=== PATIENT | male | born 1955 | race Caucasian/White ===

== ENCOUNTER 2016-12-08 06:12 | Inpatient (IN) | payer OTHER ==
[~2016-12-08] VITALS: Ht 188 cm; Wt 140.4 kg
[~2016-12-08 06:12] MED LIST: AMOXICILLIN500 MG PO; ANAPROX DS550 MG PO; ASPIRIN325 MG PO; ATIVAN1 MG PO; CIPROFLOXACIN500 MG PO; CLARITIN10 MG PO; CORBAN MAGNESI400 MG PO; CYMBALTA60 MG PO; DAILY VITE W/IR1 TA1 PO; DURAGESIC25 MCG/HR TD; EFFEXOR XR37.5 M1 PO; ESIDRIX25 MG PO; FANAPT12 MG PO; FANAPT6 MG PO; FISH OIL 10001000 MG PO; FLOMAX0.4 MG PO; GLIPIZIDE10 MG PO; GLUCOPHAGE500 MG PO; HYDROCODONE BIT1 T11 PO; K-LOR20 MEQ PO; KEFLEX500 MG PO; LASIX20 MG PO; LISINOPRIL2.5 MG PO; LOPRESSOR25 MG PO; METFORMIN500 MG PO; METOPROLOL SR50 MG PO; MOTRIN800 MG PO; MULTIPLE VITAMI1 TA9 PO; NAPROSYN500 MG PO; NEURONTIN100 MG PO; NORCO 325 MG-51 TAB PO; NOVOLIN R100 U/ML; Nizoral 2%15 GM PO; Nystatin Cream15 GM PO; OYSTER SHELL C500 M3 PO; PEN-VEE K500 MG; PENICILLIN VK500 MG PO; PERCOCET 325 MG1 TA2 PO; PRILOSEC40 MG PO; PRINIVIL5 MG PO; SEROQUEL300 MG PO; TRAMADOL HCL50 MG PO; TRILIPIX45 M1 PO; TYLENOL EXTRA500 MG PO; VICODIN 5/500 505 MG PO; VITAMIN D32000 I1 PO; VITAMIN D50000 IU PO; VITAMIN E400 I1 PO; VOLTAREN50 M1; VOLTAREN50 M1 PO; XANAX2 MG PO; ZITHROMAX Z PA250 MG PO; ZOFRAN4 MG PO; [UNRECOGNIZED DRUG - CODE]; [UNRECOGNIZED DRUG - OTHER]
[2016-12-08 06:17] VITALS: BP 135/64
--- NOTE | 2016-12-08 06:56 | NUR ---
PT ASSISTED TO X RAY VIA WHEELCHAIR VIA ARCHITECT MANAGER.
[2016-12-08 07:02] LABS: BASO % 0.3 % (0.0-1.0); EOS # 0.1 10*3/uL (0.0-0.4); EOS % 1.7 % (1.0-4.0); HEMATOCRIT 40.6 % (42.0-52.0); HEMOGLOBIN 14.6 g/dl (14.0-18.0); LYMPH # 0.8 10*3/uL (1.3-4.4); LYMPH % 9.8 % (27.0-41.0); MEAN PLATELET VOLUME 10.6 fl (9.6-12.3); MONO # 0.5 10*3/uL (0.1-1.0); MONO % 6.3 % (3.0-9.0); NEUT # 6.2 10*3/uL (2.3-7.9); NEUT % 81.5 % (47.0-73.0); PLATELET COUNT AUTOMATED 181 10*3/uL (130-400); RED BLOOD COUNT 4.56 10*6/uL (4.50-5.90); RED CELL DISTRI WIDTH 12.4 % (0-14.5); WHITE BLOOD COUNT 7.7 10*3/uL (4.8-10.8)
[2016-12-08 07:17] LABS: ALBUMIN 3.8 gm/dl (3.1-4.5); ALKALINE PHOSPHATASE 79 U/L (45-117); BUN 14 mg/dl (7-24); CHLORIDE 105 mmol/L (98-107); CREATININE 1.27 mg/dL (0.70-1.30); LIPASE 81 U/L (73-393); POTASSIUM 3.4 mmol/L (3.5-5.1); SGOT/AST 19 IU/L (3-35); SGPT/ALT 38 U/L (12-78); SODIUM 138 mmol/L (136-145); TOTAL PROTEIN 7.4 gm/dL (6.4-8.2)
[2016-12-08 07:18] LABS: TROPONIN I < 0.015 ng/ml (<0.045)
[2016-12-08 07:41] LABS: BILIRUBIN NEGATIVE (NEGATIVE); BLOOD NEGATIVE (NEGATIVE); CLARITY CLEAR (CLEAR); COLOR YELLOW (YELLOW); GLUCOSE NEGATIVE (NEGATIVE); KETONE NEGATIVE (NEGATIVE); LEUKO ESTERASE TRACE (NEGATIVE); NITRITE NEGATIVE (NEGATIVE); SPECIFIC GRAVITY 1.015 (1.005-1.030); UROBILINOGEN 0.2 E.U./dl (0.2-1.0)
[2016-12-08 07:50] LABS: EPITHELIAL CELLS 0-2; RBC 0-2 rbc/hpf (0-2)
[2016-12-08 07:51] LABS: BACTERIA TRACE
[2016-12-08 07:58] VITALS: BP 115/65
--- NOTE | 2016-12-08 08:00 | NUR ---
NO C/O AT THIS TIME.PT BEING ADMITTED,HE VOICES UNDERSTANDING.HE WAS PLACED ON TELEMETRY DUE TO ABNORMAL CALCIUM LEVEL.AWAITING CALCIUM IV FROM PHARMACY. IV NS FLUIDS INFUSING AT THIS TIME.---ED MENDOZA RN
--- NOTE | 2016-12-08 08:20 | NUR ---
A 61, admitted to , under the services of SKIP Saab DO with a diagnosis of DEHYDRATION, LACTIC ACIDOSIS, HYPOCALCEMIA. Chief complaint is DIARRHEA. Patient arrived via bed from ER. Monitor applied. Initial assessment completed. Vital signs taken and recorded. SKIP SAAB DO notified of admission to the unit. Orders received. See assessment for past medical history, medications and allergies. Patient and/or family oriented to unit. [facility] reviewed. Clothing/patient valuable form completed. ASSESSMENT COMPLETE. SKIN INTACT WITH NO WOUNDS. IMMUNIZED FOR FLU AND PNEUMONIA NOVEMBER 2016. WILL VERIFY HOME MEDICATIONS WITH PHARMACIST AT [facility]. ESTEFANÍA JOSE
[2016-12-08 08:52] VITALS: BP 132/86
--- NOTE | 2016-12-08 11:00 | NUR ---
INFORMED DR TELLO THAT PATIENTS HOME MEDICATIONS WERE VERIFIED WITH PHARMACIST ANNIE AT [facility]. ORDER RECEIVED TO HOLD PTS MIRALAX AND CONTINUE THE REST OF HOME MEDICAIONS.
[2016-12-08] MEDS ORDERED: TANZEUM30 MG/0.5 SQ (11:28)
[2016-12-08] MEDS ORDERED: XANAX2 M1 PO (11:29)
[2016-12-08] MEDS ORDERED: REMERON30 M1 PO (11:30)
[2016-12-08] MEDS ORDERED: MULTIPLE VITAM1 EAC1 PO (11:31)
[2016-12-08] MEDS ORDERED: LOPID600 M1 PO (11:31)
[2016-12-08] MEDS ORDERED: FLOMAX0.4 MG PO (11:32)
[2016-12-08] MEDS ORDERED: FANAPT12 MG PO (11:32)
[2016-12-08] MEDS ORDERED: ALOGLIPTIN12.5 MG PO (11:33)
[2016-12-08] MEDS ORDERED: MIRALAX POWDER255 G1 PO (11:38)
[2016-12-08 12:00] VITALS: BP 122/68
[2016-12-08 16:59] VITALS: BP 132/77
[2016-12-08 17:30] LABS: BUN 11 mg/dl (7-24); CHLORIDE 106 mmol/L (98-107); CREATININE 1.06 mg/dL (0.70-1.30); POTASSIUM 3.7 mmol/L (3.5-5.1); SODIUM 140 mmol/L (136-145)
--- NOTE | 2016-12-08 18:40 | NUR ---
ADMINISTERED PO NORCO AND XANAX PER PT REQUEST FOR ABDOMINAL PAIN RATED 8/10 AND ANXIETY. WILL MONITOR FOR EFFECTIVENESS.
[2016-12-08 20:00] VITALS: BP 137/75
--- NOTE | 2016-12-08 20:00 | NUR ---
PATIENT STILL HAVING COMPLAINT OF DIARRHEA, AND SOME INTERMITTEN ACHES IN STOMACH. PATIENT STATED HE HASNT SLEPT AND IS HOPING TO SLEEP TONIGHT. PATIENT ALSO HAS COMPLAINT OF NAUSEA, ZOFRAN WAS GIVEN. WILL MONITOR AND REASSESS.
--- NOTE | 2016-12-08 21:00 | NUR ---
ZOFRAN EFFECTIVE FOR NAUSEA.
[2016-12-09] VITALS: BP 105/50
--- NOTE | 2016-12-09 00:22 | NUR ---
24 HR chart check completed.
[2016-12-09 06:52] LABS: BASO % 0.4 % (0.0-1.0); EOS # 0.2 10*3/uL (0.0-0.4); EOS % 2.1 % (1.0-4.0); HEMATOCRIT 37.8 % (42.0-52.0); HEMOGLOBIN 13.4 g/dl (14.0-18.0); LYMPH # 0.5 10*3/uL (1.3-4.4); LYMPH % 7.1 % (27.0-41.0); MEAN CELL VOLUME 89.2 fl (80.0-94.0); MEAN CORPUSCULAR HGB 31.6 pg (27.0-31.0); MEAN CORPUSCULAR HGB CONC 35.4 g/dl (33.0-37.0); MEAN PLATELET VOLUME 10.8 fl (9.6-12.3); MONO # 0.6 10*3/uL (0.1-1.0); MONO % 8.3 % (3.0-9.0); NEUT # 6.1 10*3/uL (2.3-7.9); PLATELET COUNT AUTOMATED 156 10*3/uL (130-400); RED BLOOD COUNT 4.24 10*6/uL (4.50-5.90); RED CELL DISTRI WIDTH 12.4 % (0-14.5); WHITE BLOOD COUNT 7.5 10*3/uL (4.8-10.8)
[2016-12-09 07:29] LABS: ALBUMIN 3.4 gm/dl (3.1-4.5); BUN 11 mg/dl (7-24); CHLORIDE 110 mmol/L (98-107); POTASSIUM 3.1 mmol/L (3.5-5.1); SODIUM 141 mmol/L (136-145)
[2016-12-09 07:30] LABS: ACT PARTIAL THROMBO TIME 26.3 SECONDS (20.8-31.5)
[2016-12-09 07:35] LABS: VITAMIN D, 25-HYDROXY 60.8 ng/mL (30-100)
[2016-12-09 07:38] LABS: ALKALINE PHOSPHATASE 68 U/L (45-117); CREATININE 0.97 mg/dL (0.70-1.30); FREE T4 0.78 ng/dl (0.76-1.46); PHOSPHOROUS 2.1 mg/dL (2.5-4.9); SGOT/AST 17 IU/L (3-35); SGPT/ALT 31 U/L (12-78); TOTAL PROTEIN 6.2 gm/dL (6.4-8.2)
[2016-12-09 08:00] VITALS: BP 130/70
--- NOTE | 2016-12-09 08:30 | NUR ---
Rn Patient Care in to talk to patient. Patient states lives at HOME ALONE with . There are 0 steps in the home. Physician: DR MCMAHON [facility]acy: [facility] Home health services: NONE Patient's level of ADLs: INDEPENDENT Patient has working utilities: YES DME: NONE Follow-up physician's appointment after d/c: WILL BE MADE PRIOR TO DC Does patient want to access PORTAL?: Discharge plan HOME. NICOLE MAX DENIES ANY DC NEEDS.
[2016-12-09 12:00] VITALS: BP 132/70
--- NOTE | 2016-12-09 14:53 | NUR ---
PT STATES HE JUST HAD A BOWEL MOVEMENT AND THAT IT WAS SEMI SOLID.
[2016-12-09 16:00] VITALS: BP 145/86
[2016-12-09 20:00] VITALS: BP 153/80
--- NOTE | 2016-12-09 21:47 | NUR ---
PATIENT RESTING IN BED, VOICES NO COMPLAINTS. IV INTACT, ATB GIVEN WITHOUT PROBLEMS. BGM= 137, NO INSULIN GIVEN. BOWEL SOUNDS ARE HYPERACTIVE, NO FURTHER EPISODES OF DIARRHEA PER PATIENT SINCE 1400.
[2016-12-10] VITALS: BP 134/68
[2016-12-10 06:08] LABS: BASO % 0.5 % (0.0-1.0); EOS # 0.2 10*3/uL (0.0-0.4); EOS % 2.8 % (1.0-4.0); HEMOGLOBIN 13.3 g/dl (14.0-18.0); LYMPH % 15.3 % (27.0-41.0); MEAN CELL VOLUME 89.2 fl (80.0-94.0); MEAN CORPUSCULAR HGB CONC 35.9 g/dl (33.0-37.0); MONO # 0.6 10*3/uL (0.1-1.0); MONO % 9.7 % (3.0-9.0); NEUT # 4.5 10*3/uL (2.3-7.9); NEUT % 71.4 % (47.0-73.0); PLATELET COUNT AUTOMATED 152 10*3/uL (130-400); RED BLOOD COUNT 4.15 10*6/uL (4.50-5.90); RED CELL DISTRI WIDTH 12.4 % (0-14.5); WHITE BLOOD COUNT 6.3 10*3/uL (4.8-10.8)
[2016-12-10 06:20] LABS: BUN 9 mg/dl (7-24); CHLORIDE 111 mmol/L (98-107); POTASSIUM 3.1 mmol/L (3.5-5.1); SODIUM 144 mmol/L (136-145)
[2016-12-10 08:00] VITALS: BP 150/82
[2016-12-10 12:00] VITALS: BP 117/57
[2016-12-10] MEDS ORDERED: ZOFRAN ODT4 MG SL (12:36)
--- NOTE | 2016-12-10 13:34 | NUR ---
Discharge instructions reviewed with patient/family. Patient receptive and verbalizes understanding. Follow-up care arranged. Written instructions given to patient/family. MARIA DOLORES SAL
== END 2016-12-10 11:33 | disposition home or self-care (01) | DRG 872 ==
LOC: ED 06:12 → 4E 07:43 → EDHOLD 07:43 → 4E 07:46
PROVIDERS: Emergency Medicine Emergency Medical Services; Internal Medicine; ADMIT Internal Medicine
DX: A41.9 Sepsis, unspecified organism (principal); E87.2 Acidosis; E11.65 Type 2 diabetes mellitus with hyperglycemia; A09 Infectious gastroenteritis and colitis, unspecified; N13.2 Hydronephrosis with renal and ureteral calculous obstruction; Z68.41 Body mass index [BMI] 40.0-44.9, adult; E66.01 Morbid (severe) obesity due to excess calories; E83.51 Hypocalcemia; E87.6 Hypokalemia; G47.00 Insomnia, unspecified; M54.5 Low back pain; G89.29 Other chronic pain; F41.9 Anxiety disorder, unspecified; F32.9 Major depressive disorder, single episode, unspecified; E86.0 Dehydration; Z82.49 Family history of ischemic heart disease and other diseases of the circulatory system; Z87.01 Personal history of pneumonia (recurrent); Z79.84 Long term (current) use of oral hypoglycemic drugs; Z79.899 Other long term (current) drug therapy

== ENCOUNTER → 2017-01-11 | Outpatient (CLI) | payer OTHER ==
[~2017-01-11] MED LIST changes: +ALOGLIPTIN12.5 MG PO; +LOPID600 M1 PO; +MIRALAX POWDER255 G1 PO; +MULTIPLE VITAM1 EAC1 PO; +REMERON30 M1 PO; +TANZEUM30 MG/0.5 SQ; +XANAX2 M1 PO; +ZOFRAN ODT4 MG SL
== END | disposition home or self-care (01) ==
LOC: NM 12-25 11:00
DX: N13.5 Crossing vessel and stricture of ureter without hydronephrosis (principal); I10 Essential (primary) hypertension; E11.9 Type 2 diabetes mellitus without complications

== ENCOUNTER 2017-03-13 11:04 | Emergency (ER) | payer OTHER ==
[~2017-03-13] VITALS: Wt 139.7 kg
[2017-03-13 11:05] VITALS: BP 138/85
[2017-03-13] MEDS ORDERED: FLONASE ALLERG9.9 ML NAS (11:19)
[2017-03-13] MEDS ORDERED: ROBITUSSIN DM 105 ML PO (11:19)
[2017-03-13] MEDS ORDERED: CLARITIN10 MG PO (11:19)
[2017-03-13] MEDS ORDERED: TAMIFLU 75MG CA75 MG PO (11:44)
== END 2017-03-13 13:36 | disposition home or self-care (01) ==
LOC: ED 11:04
DX: J10.1 Influenza due to other identified influenza virus with other respiratory manifestations (principal); R03.0 Elevated blood-pressure reading, without diagnosis of hypertension; Z79.899 Other long term (current) drug therapy; Z93.0 Tracheostomy status

== ENCOUNTER → 2018-09-06 | Outpatient (CLI) | payer OTHER ==
[~2018-09-06] MED LIST changes: +FLONASE ALLERG9.9 ML NAS; +ROBITUSSIN DM 105 ML PO; +TAMIFLU 75MG CA75 MG PO
[2018-09-06 18:53] LABS: HEMATOCRIT 40.4 % (42.0-52.0); HEMOGLOBIN 14.2 g/dl (14.0-18.0); MEAN CELL VOLUME 91.6 fl (80.0-94.0); MEAN CORPUSCULAR HGB 32.2 pg (27.0-31.0); MEAN CORPUSCULAR HGB CONC 35.1 g/dl (33.0-37.0); MEAN PLATELET VOLUME 10.6 fl (9.6-12.3); RED BLOOD COUNT 4.41 10*6/uL (4.50-5.90); RED CELL DISTRI WIDTH 12.1 % (0-14.5); WHITE BLOOD COUNT 6.2 10*3/uL (4.8-10.8)
[2018-09-06 19:26] LABS: BUN 12 mg/dl (7-24); CHLORIDE 109 mmol/L (98-107); CPK 193 U/L (39-308); POTASSIUM 3.6 mmol/L (3.5-5.1); SODIUM 141 mmol/L (136-145)
[2018-09-06 19:31] LABS: ALKALINE PHOSPHATASE 77 U/L (45-117); CHOLESTEROL 143 mg/dL (<200); CREATININE 0.91 mg/dL (0.70-1.30); HDL CHOLESTEROL 44 mg/dl (40-60); LDL CHOLESTEROL 81 mg/dL (9-159); SGOT/AST 17 IU/L (3-35); SGPT/ALT 32 U/L (12-78); TOTAL PROTEIN 7.2 gm/dL (6.4-8.2); TRIGLYCERIDES 88 mg/dl (<150); VLDL CHOLESTEROL 18 mg/dL (6-40)
[2018-09-06 19:33] LABS: VITAMIN D, 25-HYDROXY 49.7 ng/mL (30-100)
== END | disposition home or self-care (01) ==
LOC: LAB 18:10
PROVIDERS: Family Medicine
DX: Z12.5 Encounter for screening for malignant neoplasm of prostate (principal); E11.9 Type 2 diabetes mellitus without complications; E78.00 Pure hypercholesterolemia, unspecified; E55.9 Vitamin D deficiency, unspecified; I10 Essential (primary) hypertension; F20.9 Schizophrenia, unspecified; E66.9 Obesity, unspecified

== ENCOUNTER 2019-01-04 09:08 | Emergency (ER) | payer OTHER ==
[~2019-01-04] VITALS: Ht 187.9 cm; Wt 138.8 kg
[2019-01-04 09:10] VITALS: BP 154/86
[2019-01-04] MEDS ORDERED: AMOXICILLIN500 M2 PO (09:50)
== END 2019-01-04 09:53 | disposition home or self-care (01) ==
LOC: ED 09:08
DX: J02.9 Acute pharyngitis, unspecified (principal); I10 Essential (primary) hypertension; E11.9 Type 2 diabetes mellitus without complications; G89.29 Other chronic pain; Z79.899 Other long term (current) drug therapy

== ENCOUNTER 2021-08-20 09:19 | Emergency (ER) | payer MEDICARE, OTHER ==
[~2021-08-20] VITALS: Wt 137.4 kg
[~2021-08-20 09:19] MED LIST changes: +AMOXICILLIN500 M2 PO
[2021-08-20 09:30] VITALS: BP 121/62
[2021-08-20] MEDS ORDERED: CLEOCIN HCL150 MG PO (10:05)
[2021-08-20] MEDS ORDERED: PERCOCET 5-3251 EACH PO (10:05)
== END 2021-08-20 10:45 | disposition home or self-care (01) ==
LOC: ED 09:19
DX: K04.7 Periapical abscess without sinus (principal); Z79.899 Other long term (current) drug therapy

== ENCOUNTER 2021-08-27 14:22 | Emergency (ER) | payer MEDICARE, OTHER ==
[~2021-08-27] VITALS: Ht 187.9 cm; Wt 137.4 kg
[~2021-08-27 14:22] MED LIST changes: +CLEOCIN HCL150 MG PO; +PERCOCET 5-3251 EACH PO
[2021-08-27 15:37] LABS: BASO # 0.1 10*3/uL (0.0-0.1); BASO % 0.7 % (0.0-1.0); EOS # 0.2 10*3/uL (0.0-0.4); EOS % 2.1 % (1.0-4.0); HEMATOCRIT 37.5 % (42.0-52.0); LYMPH % 14.1 % (27.0-41.0); MEAN CELL VOLUME 90.6 fl (80.0-94.0); MEAN CORPUSCULAR HGB 30.2 pg (27.0-31.0); MEAN CORPUSCULAR HGB CONC 33.3 g/dl (33.0-37.0); MEAN PLATELET VOLUME 11.1 fl (9.6-12.3); MONO # 0.7 10*3/uL (0.1-1.0); MONO % 9.7 % (3.0-9.0); NEUT # 5.2 10*3/uL (2.3-7.9); PLATELET COUNT AUTOMATED 244 10*3/uL (130-400); RED BLOOD COUNT 4.14 10*6/uL (4.50-5.90); RED CELL DISTRI WIDTH 13.8 % (0-14.5); WHITE BLOOD COUNT 7.2 10*3/uL (4.8-10.8)
[2021-08-27 15:56] LABS: POTASSIUM 4.2 mmol/L (3.5-5.1)
[2021-08-27 15:59] LABS: CREATININE 1.64 mg/dL (0.70-1.30); TOTAL PROTEIN 7.3 gm/dL (6.4-8.2)
[2021-08-27 16:38] LABS: BILIRUBIN Negative (Negative); BLOOD Trace-Lysed (Negative); CLARITY Turbid (Clear); COLOR Dark Yellow (Yellow); GLUCOSE Negative (Negative); KETONE 1+ (Negative); LEUKO ESTERASE 1+ (Negative); NITRITE Negative (Negative); PH 5.5 (4.5-8.0)
[2021-08-27 16:51] LABS: BACTERIA 1+; EPITHELIAL CELLS 16-20; MUCOUS 1+; WBC 31-40 wbc/hpf (0-5)
[2021-08-27 17:45] VITALS: BP 142/80
== END 2021-08-27 18:57 | disposition short-term general hospital (02) ==
LOC: ED 14:22
PROVIDERS: Nurse Practitioner Family
DX: N39.0 Urinary tract infection, site not specified (principal); Z20.822 Contact with and (suspected) exposure to COVID-19; N20.0 Calculus of kidney; N28.9 Disorder of kidney and ureter, unspecified; Z79.899 Other long term (current) drug therapy

== ENCOUNTER 2021-09-02 15:28 | Emergency (ER) | payer MEDICARE, OTHER ==
[~2021-09-02] VITALS: Ht 187.9 cm; Wt 133.4 kg
[2021-09-02 15:51] VITALS: BP 122/75
[2021-09-02 16:27] LABS: BILIRUBIN Negative (Negative); BLOOD 3+ (Negative); CLARITY Cloudy (Clear); COLOR Dark Yellow (Yellow); GLUCOSE Negative (Negative); KETONE Trace (Negative); LEUKO ESTERASE 2+ (Negative); NITRITE Negative (Negative)
[2021-09-02 16:43] LABS: BACTERIA 1+; MUCOUS 1+; RBC 31-40 rbc/hpf (0-2); WBC 21-30 wbc/hpf (0-5)
[2021-09-02 17:48] LABS: BASO % 0.6 % (0.0-1.0); EOS # 0.2 10*3/uL (0.0-0.4); EOS % 4.1 % (1.0-4.0); HEMATOCRIT 33.5 % (42.0-52.0); LYMPH # 1.1 10*3/uL (1.3-4.4); LYMPH % 22.4 % (27.0-41.0); MEAN CELL VOLUME 92.3 fl (80.0-94.0); MEAN CORPUSCULAR HGB 30.6 pg (27.0-31.0); MEAN CORPUSCULAR HGB CONC 33.1 g/dl (33.0-37.0); MEAN PLATELET VOLUME 10.3 fl (9.6-12.3); MONO # 0.5 10*3/uL (0.1-1.0); MONO % 10.1 % (3.0-9.0); NEUT % 62.6 % (47.0-73.0); PLATELET COUNT AUTOMATED 217 10*3/uL (130-400); RED BLOOD COUNT 3.63 10*6/uL (4.50-5.90); RED CELL DISTRI WIDTH 13.6 % (0-14.5); WHITE BLOOD COUNT 4.8 10*3/uL (4.8-10.8)
[2021-09-02 17:58] LABS: ACT PARTIAL THROMBO TIME 27.1 SECONDS (20.0-32.1)
[2021-09-02 18:04] LABS: ALKALINE PHOSPHATASE 82 U/L (45-117); BUN 14 mg/dl (7-24); CHLORIDE 110 mmol/L (98-107); CREATININE 1.31 mg/dL (0.70-1.30); LIPASE 141 U/L (73-393); POTASSIUM 4.3 mmol/L (3.5-5.1); SGOT/AST 20 IU/L (3-35); SGPT/ALT 23 U/L (12-78); SODIUM 141 mmol/L (136-145); TOTAL PROTEIN 6.7 gm/dL (6.4-8.2)
[2021-09-02] MEDS ORDERED: CIPRO250 MG PO (18:32)
== END 2021-09-02 18:35 | disposition home or self-care (01) ==
LOC: ED 15:28
PROVIDERS: Emergency Medicine
DX: N39.0 Urinary tract infection, site not specified (principal); Z79.899 Other long term (current) drug therapy; Z90.89 Acquired absence of other organs

== ENCOUNTER 2021-10-22 14:35 | Emergency (ER) | payer MEDICARE, OTHER ==
[~2021-10-22] VITALS: Wt 127.9 kg
[~2021-10-22 14:35] MED LIST changes: +CIPRO250 MG PO
[2021-10-22 17:03] LABS: BILIRUBIN Negative (Negative); BLOOD 3+ (Negative); CLARITY Cloudy (Clear); COLOR Yellow (Yellow); GLUCOSE Negative (Negative); KETONE Trace (Negative); LEUKO ESTERASE 1+ (Negative); NITRITE Negative (Negative); PH 5.5 (4.5-8.0)
[2021-10-22 17:11] LABS: BACTERIA 2+; RBC TNTC rbc/hpf (0-2)
[2021-10-22 17:17] LABS: BASO % 0.8 % (0.0-1.0); EOS # 0.2 10*3/uL (0.0-0.4); EOS % 3.4 % (1.0-4.0); HEMATOCRIT 35.4 % (42.0-52.0); LYMPH # 1.1 10*3/uL (1.3-4.4); MEAN CELL VOLUME 96.2 fl (80.0-94.0); MEAN CORPUSCULAR HGB 32.6 pg (27.0-31.0); MEAN CORPUSCULAR HGB CONC 33.9 g/dl (33.0-37.0); MEAN PLATELET VOLUME 10.5 fl (9.6-12.3); MONO # 0.4 10*3/uL (0.1-1.0); MONO % 8.2 % (3.0-9.0); NEUT # 3.6 10*3/uL (2.3-7.9); NEUT % 67.4 % (47.0-73.0); PLATELET COUNT AUTOMATED 211 10*3/uL (130-400); RED BLOOD COUNT 3.68 10*6/uL (4.50-5.90); RED CELL DISTRI WIDTH 13.1 % (0-14.5); WHITE BLOOD COUNT 5.3 10*3/uL (4.8-10.8)
[2021-10-22 17:34] LABS: ALKALINE PHOSPHATASE 82 U/L (45-117); BUN 16 mg/dl (7-24); CHLORIDE 110 mmol/L (98-107); CREATININE 1.19 mg/dL (0.70-1.30); LIPASE 150 U/L (73-393); POTASSIUM 4.1 mmol/L (3.5-5.1); SGOT/AST 12 IU/L (3-35); SGPT/ALT 20 U/L (12-78); SODIUM 139 mmol/L (136-145); TOTAL PROTEIN 7.5 gm/dL (6.4-8.2)
[2021-10-22] MEDS ORDERED: TRAZODONE100 MG PO (22:15)
[2021-10-23 03:05] VITALS: BP 104/49
== END 2021-10-23 03:23 | disposition short-term general hospital (02) ==
LOC: ED 14:35
PROVIDERS: Emergency Medicine
DX: N13.0 Hydronephrosis with ureteropelvic junction obstruction (principal); N13.4 Hydroureter; Z79.899 Other long term (current) drug therapy

== ENCOUNTER 2021-11-02 08:56 | Emergency (ER) | payer MEDICARE, OTHER ==
[~2021-11-02] VITALS: Ht 187.9 cm; Wt 127.9 kg
[~2021-11-02 08:56] MED LIST changes: +TRAZODONE100 MG PO
[2021-11-02 08:59] VITALS: BP 125/70
[2021-11-02 09:36] LABS: BILIRUBIN Negative (Negative); BLOOD Negative (Negative); CLARITY Clear (Clear); COLOR Yellow (Yellow); GLUCOSE Negative (Negative); KETONE Negative (Negative); LEUKO ESTERASE Trace (Negative); NITRITE Negative (Negative); UROBILINOGEN 0.2 E.U./dl (0.0-1.0)
[2021-11-02 09:37] LABS: BASO % 0.6 % (0.0-1.0); EOS # 0.3 10*3/uL (0.0-0.4); EOS % 5.5 % (1.0-4.0); HEMATOCRIT 34.2 % (42.0-52.0); LYMPH % 20.9 % (27.0-41.0); MEAN CORPUSCULAR HGB 32.8 pg (27.0-31.0); MEAN CORPUSCULAR HGB CONC 34.5 g/dl (33.0-37.0); MEAN PLATELET VOLUME 10.6 fl (9.6-12.3); MONO # 0.4 10*3/uL (0.1-1.0); MONO % 8.9 % (3.0-9.0); NEUT % 63.9 % (47.0-73.0); PLATELET COUNT AUTOMATED 205 10*3/uL (130-400); RED CELL DISTRI WIDTH 13.2 % (0-14.5); WHITE BLOOD COUNT 4.7 10*3/uL (4.8-10.8)
[2021-11-02 09:55] LABS: ALKALINE PHOSPHATASE 80 U/L (45-117); BUN 9 mg/dl (7-24); CHLORIDE 112 mmol/L (98-107); CREATININE 0.91 mg/dL (0.70-1.30); POTASSIUM 3.8 mmol/L (3.5-5.1); SGOT/AST 9 IU/L (3-35); SGPT/ALT 15 U/L (12-78); SODIUM 142 mmol/L (136-145); TOTAL PROTEIN 6.7 gm/dL (6.4-8.2)
[2021-11-02 10:09] LABS: RBC 0-2 rbc/hpf (0-2)
[2021-11-02 10:10] LABS: BACTERIA 1+
== END 2021-11-02 11:57 | disposition home or self-care (01) ==
LOC: ED 08:56
PROVIDERS: Internal Medicine
DX: N20.0 Calculus of kidney (principal); Z79.899 Other long term (current) drug therapy; Z90.89 Acquired absence of other organs

== ENCOUNTER 2021-12-08 17:18 | Emergency (ER) | payer MEDICARE, OTHER ==
[~2021-12-08] VITALS: Ht 187.9 cm; Wt 129.3 kg
[2021-12-08 17:27] VITALS: BP 135/63
[2021-12-08 20:38] LABS: BASO % 0.6 % (0.0-1.0); EOS # 0.1 10*3/uL (0.0-0.4); EOS % 2.8 % (1.0-4.0); HEMATOCRIT 38.4 % (42.0-52.0); LYMPH # 1.3 10*3/uL (1.3-4.4); LYMPH % 26.2 % (27.0-41.0); MEAN CELL VOLUME 93.7 fl (80.0-94.0); MEAN CORPUSCULAR HGB CONC 34.1 g/dl (33.0-37.0); MEAN PLATELET VOLUME 10.3 fl (9.6-12.3); MONO # 0.4 10*3/uL (0.1-1.0); NEUT # 3.1 10*3/uL (2.3-7.9); NEUT % 62.2 % (47.0-73.0); PLATELET COUNT AUTOMATED 186 10*3/uL (130-400); RED CELL DISTRI WIDTH 12.2 % (0-14.5)
[2021-12-08 20:54] LABS: ALKALINE PHOSPHATASE 84 U/L (45-117); BUN 10 mg/dl (7-24); CHLORIDE 111 mmol/L (98-107); CREATININE 0.94 mg/dL (0.70-1.30); POTASSIUM 3.8 mmol/L (3.5-5.1); SGOT/AST 11 IU/L (3-35); SGPT/ALT 17 U/L (12-78); SODIUM 143 mmol/L (136-145); TOTAL PROTEIN 7.3 gm/dL (6.4-8.2)
[2021-12-08 21:36] LABS: BILIRUBIN Negative (Negative); BLOOD Negative (Negative); CLARITY Clear (Clear); COLOR Yellow (Yellow); GLUCOSE Negative (Negative); KETONE Negative (Negative); LEUKO ESTERASE Trace (Negative); NITRITE Negative (Negative); PH 5.5 (4.5-8.0); UROBILINOGEN 0.2 E.U./dl (0.0-1.0)
[2021-12-08 21:40] LABS: BACTERIA 1+; EPITHELIAL CELLS 0-2
[2021-12-08] MEDS ORDERED: PYRIDIUM100 MG PO (22:32)
== END 2021-12-08 22:45 | disposition home or self-care (01) ==
LOC: ED 17:18
PROVIDERS: Physician Assistant
DX: N23 Unspecified renal colic (principal); Z79.899 Other long term (current) drug therapy; Z90.89 Acquired absence of other organs; Z98.890 Other specified postprocedural states

== ENCOUNTER → 2021-12-10 | Outpatient (CLI) | payer OTHER ==
[~2021-12-10] MED LIST changes: +PYRIDIUM100 MG PO
== END ==
LOC: LAB 11:16
PROVIDERS: ATTEND Urology
DX: Z12.5 Encounter for screening for malignant neoplasm of prostate (principal); D40.0 Neoplasm of uncertain behavior of prostate; R53.83 Other fatigue

== ENCOUNTER → 2022-01-01 | Outpatient (CLI) | payer OTHER | END | disposition home or self-care (01) | LOC: CT 00:22 | PROVIDERS: ATTEND Urology | DX: N13.2 Hydronephrosis with renal and ureteral calculous obstruction (principal); N28.1 Cyst of kidney, acquired; N40.0 Benign prostatic hyperplasia without lower urinary tract symptoms; K86.1 Other chronic pancreatitis ==

== ENCOUNTER 2022-01-19 23:05 | Emergency (ER) | payer OTHER ==
[~2022-01-19] VITALS: Ht 182.8 cm; Wt 113.4 kg
[2022-01-19 23:17] VITALS: BP 122/78
[2022-01-20 00:09] LABS: BASO % 0.5 % (0.0-1.0); EOS # 0.2 10*3/uL (0.0-0.4); EOS % 2.9 % (1.0-4.0); HEMATOCRIT 36.1 % (42.0-52.0); LYMPH # 1.4 10*3/uL (1.3-4.4); LYMPH % 25.9 % (27.0-41.0); MEAN CELL VOLUME 93.5 fl (80.0-94.0); MEAN CORPUSCULAR HGB 32.1 pg (27.0-31.0); MEAN CORPUSCULAR HGB CONC 34.3 g/dl (33.0-37.0); MEAN PLATELET VOLUME 10.6 fl (9.6-12.3); MONO # 0.4 10*3/uL (0.1-1.0); MONO % 7.5 % (3.0-9.0); NEUT # 3.5 10*3/uL (2.3-7.9); PLATELET COUNT AUTOMATED 195 10*3/uL (130-400); RED BLOOD COUNT 3.86 10*6/uL (4.50-5.90); RED CELL DISTRI WIDTH 12.4 % (0-14.5); WHITE BLOOD COUNT 5.6 10*3/uL (4.8-10.8)
[2022-01-20 00:18] LABS: BILIRUBIN Negative (Negative); BLOOD Negative (Negative); CLARITY Clear (Clear); COLOR Yellow (Yellow); GLUCOSE Negative (Negative); KETONE Negative (Negative); LEUKO ESTERASE Negative (Negative); NITRITE Negative (Negative); PH 5.5 (4.5-8.0); SPECIFIC GRAVITY 1.015 (1.001-1.030); UROBILINOGEN 0.2 E.U./dl (0.0-1.0)
[2022-01-20 00:24] LABS: ALKALINE PHOSPHATASE 76 U/L (46-116); BUN 13 mg/dl (9-23); CHLORIDE 104 mmol/L (98-107); CREATININE 1.07 mg/dL (0.70-1.30); SGPT/ALT 11 U/L (10-49); SODIUM 138 mmol/L (136-145)
[2022-01-20 00:25] LABS: RBC 0-2 rbc/hpf (0-2); WBC 0-2 wbc/hpf (0-5)
[2022-01-20 00:25] LABS: TOTAL PROTEIN 6.5 gm/dL (6.0-8.0)
== END 2022-01-20 00:58 | disposition home or self-care (01) ==
LOC: ED 23:05
PROVIDERS: Emergency Medicine
DX: M54.59 Other low back pain (principal); R23.2 Flushing; Z98.890 Other specified postprocedural states

== ENCOUNTER 2022-02-01 16:06 | Emergency (ER) | payer OTHER ==
[~2022-02-01] VITALS: Ht 187.9 cm; Wt 133.8 kg
[2022-02-01 16:56] VITALS: BP 145/68
[2022-02-01 17:34] LABS: BILIRUBIN Negative (Negative); BLOOD Negative (Negative); CLARITY Clear (Clear); COLOR Yellow (Yellow); GLUCOSE Negative (Negative); KETONE Negative (Negative); LEUKO ESTERASE Trace (Negative); NITRITE Negative (Negative); SPECIFIC GRAVITY 1.015 (1.001-1.030); UROBILINOGEN 0.2 E.U./dl (0.0-1.0)
[2022-02-01 17:38] LABS: BASO % 0.5 % (0.0-1.0); EOS # 0.1 10*3/uL (0.0-0.4); HEMATOCRIT 36.1 % (42.0-52.0); LYMPH # 1.1 10*3/uL (1.3-4.4); LYMPH % 18.8 % (27.0-41.0); MEAN CELL VOLUME 91.4 fl (80.0-94.0); MEAN CORPUSCULAR HGB 31.9 pg (27.0-31.0); MEAN CORPUSCULAR HGB CONC 34.9 g/dl (33.0-37.0); MEAN PLATELET VOLUME 10.1 fl (9.6-12.3); MONO # 0.5 10*3/uL (0.1-1.0); MONO % 7.6 % (3.0-9.0); NEUT # 4.2 10*3/uL (2.3-7.9); NEUT % 70.8 % (47.0-73.0); PLATELET COUNT AUTOMATED 184 10*3/uL (130-400); RED BLOOD COUNT 3.95 10*6/uL (4.50-5.90); RED CELL DISTRI WIDTH 12.4 % (0-14.5); WHITE BLOOD COUNT 5.9 10*3/uL (4.8-10.8)
[2022-02-01 17:49] LABS: RBC 0-2 rbc/hpf (0-2)
[2022-02-01 17:58] LABS: ALKALINE PHOSPHATASE 76 U/L (46-116); BUN 9 mg/dl (9-23); CHLORIDE 107 mmol/L (98-107); CREATININE 1.02 mg/dL (0.70-1.30); LIPASE 31 U/L (12-53); POTASSIUM 3.9 mmol/L (3.4-5.1); SGPT/ALT 11 U/L (10-49); SODIUM 141 mmol/L (136-145); TOTAL PROTEIN 6.6 gm/dL (6.0-8.0)
== END 2022-02-01 18:17 | disposition home or self-care (01) ==
LOC: ED 16:06
PROVIDERS: Internal Medicine; Physician Assistant
DX: R10.9 Unspecified abdominal pain (principal); Z79.899 Other long term (current) drug therapy; Z98.890 Other specified postprocedural states; Z90.89 Acquired absence of other organs; Z87.442 Personal history of urinary calculi

== ENCOUNTER 2022-02-08 17:24 | Emergency (ER) | payer OTHER ==
[~2022-02-08] VITALS: Wt 126.1 kg
[2022-02-08 17:29] VITALS: BP 148/89
== END 2022-02-08 19:34 | disposition home or self-care (01) ==
LOC: ED 17:24
DX: K59.00 Constipation, unspecified (principal); Z98.890 Other specified postprocedural states

== ENCOUNTER 2022-02-16 19:20 | Emergency (ER) | payer OTHER ==
[~2022-02-16] VITALS: Ht 187.9 cm; Wt 126.1 kg
[2022-02-16 19:37] VITALS: BP 156/70
[2022-02-16 19:50] LABS: BASO % 0.4 % (0.0-1.0); EOS # 0.1 10*3/uL (0.0-0.4); EOS % 1.1 % (1.0-4.0); LYMPH # 1.2 10*3/uL (1.3-4.4); LYMPH % 17.6 % (27.0-41.0); MEAN CELL VOLUME 90.5 fl (80.0-94.0); MEAN CORPUSCULAR HGB 31.8 pg (27.0-31.0); MEAN CORPUSCULAR HGB CONC 35.1 g/dl (33.0-37.0); MEAN PLATELET VOLUME 10.1 fl (9.6-12.3); MONO # 0.6 10*3/uL (0.1-1.0); MONO % 8.3 % (3.0-9.0); NEUT # 5.1 10*3/uL (2.3-7.9); NEUT % 72.5 % (47.0-73.0); PLATELET COUNT AUTOMATED 205 10*3/uL (130-400); RED BLOOD COUNT 4.09 10*6/uL (4.50-5.90); RED CELL DISTRI WIDTH 12.7 % (0-14.5)
[2022-02-16 19:54] LABS: BILIRUBIN Negative (Negative); BLOOD Negative (Negative); CLARITY Clear (Clear); COLOR Yellow (Yellow); GLUCOSE Negative (Negative); KETONE Negative (Negative); LEUKO ESTERASE Trace (Negative); NITRITE Negative (Negative); SPECIFIC GRAVITY 1.015 (1.001-1.030)
[2022-02-16 20:07] LABS: ALKALINE PHOSPHATASE 77 U/L (46-116); BUN 13 mg/dl (9-23); CHLORIDE 103 mmol/L (98-107); POTASSIUM 3.9 mmol/L (3.4-5.1); SGPT/ALT 13 U/L (10-49); TOTAL PROTEIN 7.1 gm/dL (6.0-8.0)
[2022-02-16 20:09] LABS: RBC 0-2 rbc/hpf (0-2); WBC 0-2 wbc/hpf (0-5)
== END 2022-02-16 20:43 | disposition home or self-care (01) ==
LOC: ED 19:20
PROVIDERS: Internal Medicine
DX: R53.1 Weakness (principal); G89.29 Other chronic pain; R10.30 Lower abdominal pain, unspecified; Z90.89 Acquired absence of other organs; M54.9 Dorsalgia, unspecified

== ENCOUNTER 2022-02-19 05:40 | Emergency (ER) | payer OTHER ==
[~2022-02-19] VITALS: Ht 187.9 cm; Wt 126.1 kg
[2022-02-19 06:01] VITALS: BP 132/67
[2022-02-19] MEDS ORDERED: TRULICITY1.5 MG/0.5 SC (18:34)
[2022-02-19] MEDS ORDERED: HORIZANT600 M1 PO (18:39)
[2022-02-19] MEDS ORDERED: VITAMIN D250 MC1 PO (18:41)
[2022-02-19] MEDS ORDERED: AMITRIPTYLINE25 MG PO (18:47)
[2022-02-19] MEDS ORDERED: AVAPRO75 MG PO (18:48)
[2022-02-19] MEDS ORDERED: SENNA8.6 MG PO (18:50)
== END 2022-02-19 09:06 | disposition home or self-care (01) ==
LOC: ED 05:40
DX: F41.9 Anxiety disorder, unspecified (principal); Z79.899 Other long term (current) drug therapy; Z90.89 Acquired absence of other organs

== ENCOUNTER 2022-02-19 12:47 | Emergency (ER) | payer OTHER ==
[~2022-02-19] VITALS: Ht 187.9 cm; Wt 126.1 kg
[2022-02-19 14:56] LABS: CPK 113 U/L (34-171)
[2022-02-19 14:58] LABS: ETHYL ALCOHOL < 3.0 mg/dl (<3)
[2022-02-19 15:37] LABS: URINE AMPHETAMINES Negative (1000ng/ml); URINE BARBITURATES Negative (200ng/ml); URINE BENZODIAZEPINES Negative (200ng/ml); URINE CANNABINOIDS (THC) Negative (50ng/ml); URINE COCAINE Negative (300ng/ml); URINE METHADONE Negative (300ng/ml); URINE OPIATES Negative (300ng/ml); URINE PHENCYCLIDINE Negative (25ng/ml)
[2022-02-19 15:54] LABS: BILIRUBIN Negative (Negative); BLOOD Negative (Negative); CLARITY Clear (Clear); COLOR Yellow (Yellow); GLUCOSE Negative (Negative); KETONE Negative (Negative); LEUKO ESTERASE 1+ (Negative); NITRITE Negative (Negative); SPECIFIC GRAVITY <= 1.005 (1.001-1.030); UROBILINOGEN 0.2 E.U./dl (0.0-1.0)
[2022-02-19 16:03] LABS: BACTERIA 1+; RBC 0-2 rbc/hpf (0-2)
[2022-02-19 16:04] LABS: BASO % 0.8 % (0.0-1.0); EOS # 0.2 10*3/uL (0.0-0.4); EOS % 3.1 % (1.0-4.0); HEMATOCRIT 40.2 % (42.0-52.0); LYMPH # 1.2 10*3/uL (1.3-4.4); LYMPH % 23.7 % (27.0-41.0); MEAN CELL VOLUME 93.9 fl (80.0-94.0); MEAN CORPUSCULAR HGB 31.5 pg (27.0-31.0); MEAN CORPUSCULAR HGB CONC 33.6 g/dl (33.0-37.0); MEAN PLATELET VOLUME 10.3 fl (9.6-12.3); MONO # 0.5 10*3/uL (0.1-1.0); NEUT # 3.2 10*3/uL (2.3-7.9); NEUT % 62.2 % (47.0-73.0); PLATELET COUNT AUTOMATED 203 10*3/uL (130-400); RED BLOOD COUNT 4.28 10*6/uL (4.50-5.90); RED CELL DISTRI WIDTH 12.9 % (0-14.5); WHITE BLOOD COUNT 5.2 10*3/uL (4.8-10.8)
[2022-02-19 16:25] LABS: ALKALINE PHOSPHATASE 77 U/L (46-116); BUN 19 mg/dl (9-23); CHLORIDE 103 mmol/L (98-107); POTASSIUM 4.5 mmol/L (3.4-5.1)
[2022-02-19 16:30] LABS: SGPT/ALT < 7 U/L (10-49)
[2022-02-19] MEDS ORDERED: TRULICITY1.5 MG/0.5 SC (18:34)
[2022-02-19] MEDS ORDERED: HORIZANT600 M1 PO (18:39)
[2022-02-19] MEDS ORDERED: VITAMIN D250 MC1 PO (18:41)
[2022-02-19] MEDS ORDERED: AMITRIPTYLINE25 MG PO (18:47)
[2022-02-19] MEDS ORDERED: AVAPRO75 MG PO (18:48)
[2022-02-19] MEDS ORDERED: SENNA8.6 MG PO (18:50)
[2022-02-20 06:33] VITALS: BP 108/60
== END 2022-02-20 10:35 | disposition short-term general hospital (02) ==
LOC: ED 12:47
PROVIDERS: Internal Medicine; Student in an Organized Health Care Education/Training Program
DX: F43.21 Adjustment disorder with depressed mood (principal); Z20.822 Contact with and (suspected) exposure to COVID-19; Z79.899 Other long term (current) drug therapy; Z90.89 Acquired absence of other organs

== ENCOUNTER 2022-03-23 16:40 | Emergency (ER) | payer OTHER ==
[~2022-03-23] VITALS: Wt 128.8 kg
[~2022-03-23 16:40] MED LIST changes: +AMITRIPTYLINE25 MG PO; +AVAPRO75 MG PO; +HORIZANT600 M1 PO; +SENNA8.6 MG PO; +TRULICITY1.5 MG/0.5 SC; +VITAMIN D250 MC1 PO
[2022-03-23 16:49] VITALS: BP 137/70
[2022-03-23 17:11] LABS: BILIRUBIN Negative (Negative); BLOOD Negative (Negative); CLARITY Clear (Clear); COLOR Yellow (Yellow); GLUCOSE Negative (Negative); KETONE Negative (Negative); LEUKO ESTERASE Trace (Negative); NITRITE Negative (Negative); PH 6.5 (4.5-8.0); SPECIFIC GRAVITY 1.015 (1.001-1.030)
[2022-03-23 17:14] LABS: BASO % 0.8 % (0.0-1.0); EOS # 0.2 10*3/uL (0.0-0.4); EOS % 3.1 % (1.0-4.0); HEMATOCRIT 38.1 % (42.0-52.0); LYMPH # 1.3 10*3/uL (1.3-4.4); LYMPH % 24.5 % (27.0-41.0); MEAN CELL VOLUME 93.6 fl (80.0-94.0); MEAN CORPUSCULAR HGB 32.4 pg (27.0-31.0); MEAN CORPUSCULAR HGB CONC 34.6 g/dl (33.0-37.0); MEAN PLATELET VOLUME 10.1 fl (9.6-12.3); MONO # 0.4 10*3/uL (0.1-1.0); MONO % 8.5 % (3.0-9.0); NEUT # 3.3 10*3/uL (2.3-7.9); NEUT % 62.9 % (47.0-73.0); PLATELET COUNT AUTOMATED 193 10*3/uL (130-400); RED BLOOD COUNT 4.07 10*6/uL (4.50-5.90); RED CELL DISTRI WIDTH 12.5 % (0-14.5); WHITE BLOOD COUNT 5.2 10*3/uL (4.8-10.8)
[2022-03-23 17:22] LABS: URINE AMPHETAMINES Negative (1000ng/ml); URINE BARBITURATES Negative (200ng/ml); URINE BENZODIAZEPINES Negative (200ng/ml); URINE CANNABINOIDS (THC) Negative (50ng/ml); URINE COCAINE Negative (300ng/ml); URINE METHADONE Negative (300ng/ml); URINE OPIATES Negative (300ng/ml); URINE PHENCYCLIDINE Negative (25ng/ml)
[2022-03-23 17:29] LABS: ALKALINE PHOSPHATASE 68 U/L (46-116); BUN 10 mg/dl (9-23); CHLORIDE 105 mmol/L (98-107); POTASSIUM 3.8 mmol/L (3.4-5.1); SGPT/ALT 11 U/L (10-49); TOTAL PROTEIN 6.4 gm/dL (6.0-8.0)
[2022-03-23 17:31] LABS: ETHYL ALCOHOL < 3.0 mg/dl (<3)
[2022-03-23 17:42] LABS: RBC 0-2 rbc/hpf (0-2)
== END 2022-03-23 20:10 | disposition home or self-care (01) ==
LOC: ED 16:40
PROVIDERS: Physician Assistant
DX: F41.9 Anxiety disorder, unspecified (principal); F03.90 Unspecified dementia, unspecified severity, without behavioral disturbance, psychotic disturbance, mood disturbance, and anxiety; F19.10 Other psychoactive substance abuse, uncomplicated; Z98.890 Other specified postprocedural states; Z20.822 Contact with and (suspected) exposure to COVID-19

== ENCOUNTER 2022-04-05 07:52 | Emergency (ER) | payer OTHER ==
[~2022-04-05] VITALS: Ht 187.9 cm; Wt 83.5 kg
[2022-04-05 08:00] VITALS: BP 143/76
== END 2022-04-05 09:08 | disposition home or self-care (01) ==
LOC: ED 07:52
DX: J06.9 Acute upper respiratory infection, unspecified (principal); Z98.890 Other specified postprocedural states; Z20.822 Contact with and (suspected) exposure to COVID-19

== ENCOUNTER 2022-04-20 10:25 | Emergency (ER) | payer OTHER ==
[~2022-04-20] VITALS: Ht 187.9 cm; Wt 128.8 kg
[2022-04-20 10:35] VITALS: BP 130/66
[2022-04-20 11:10] LABS: BILIRUBIN Negative (Negative); BLOOD Negative (Negative); CLARITY Clear (Clear); COLOR Yellow (Yellow); GLUCOSE Negative (Negative); KETONE Negative (Negative); LEUKO ESTERASE 1+ (Negative); NITRITE Negative (Negative); UROBILINOGEN 0.2 E.U./dl (0.0-1.0)
[2022-04-20 11:17] LABS: URINE AMPHETAMINES Negative (1000ng/ml); URINE BARBITURATES Negative (200ng/ml); URINE BENZODIAZEPINES Negative (200ng/ml); URINE CANNABINOIDS (THC) Negative (50ng/ml); URINE COCAINE Negative (300ng/ml); URINE METHADONE Negative (300ng/ml); URINE OPIATES Negative (300ng/ml); URINE PHENCYCLIDINE Negative (25ng/ml)
[2022-04-20 11:23] LABS: BACTERIA 1+; WBC 16-20 wbc/hpf (0-5)
[2022-04-20 11:26] LABS: BASO % 0.7 % (0.0-1.0); EOS # 0.2 10*3/uL (0.0-0.4); EOS % 3.7 % (1.0-4.0); HEMATOCRIT 37.7 % (42.0-52.0); LYMPH # 1.2 10*3/uL (1.3-4.4); LYMPH % 20.5 % (27.0-41.0); MEAN CELL VOLUME 92.9 fl (80.0-94.0); MEAN CORPUSCULAR HGB 32.5 pg (27.0-31.0); MEAN PLATELET VOLUME 10.2 fl (9.6-12.3); MONO # 0.4 10*3/uL (0.1-1.0); MONO % 6.7 % (3.0-9.0); NEUT # 4.1 10*3/uL (2.3-7.9); NEUT % 68.1 % (47.0-73.0); PLATELET COUNT AUTOMATED 199 10*3/uL (130-400); RED BLOOD COUNT 4.06 10*6/uL (4.50-5.90); RED CELL DISTRI WIDTH 11.9 % (0-14.5)
[2022-04-20 11:35] LABS: ACT PARTIAL THROMBO TIME 27.4 SECONDS (20.0-32.1)
[2022-04-20 11:43] LABS: ALKALINE PHOSPHATASE 65 U/L (46-116); BUN 15 mg/dl (9-23); CHLORIDE 106 mmol/L (98-107); CPK 169 U/L (34-171); LIPASE 35 U/L (12-53); POTASSIUM 4.2 mmol/L (3.4-5.1); TOTAL PROTEIN 6.9 gm/dL (6.0-8.0)
[2022-04-20 11:47] LABS: SGPT/ALT < 7 U/L (10-49)
== END 2022-04-20 19:25 ==
LOC: ED 10:25
PROVIDERS: Emergency Medicine
DX: F43.21 Adjustment disorder with depressed mood (principal); Z20.822 Contact with and (suspected) exposure to COVID-19; Z79.899 Other long term (current) drug therapy; Z90.89 Acquired absence of other organs; Z98.890 Other specified postprocedural states

== ENCOUNTER 2022-08-07 23:42 | Emergency (ER) | payer OTHER ==
[~2022-08-07] VITALS: Ht 187.9 cm; Wt 134.3 kg
[~2022-08-07 23:42] MED LIST changes: +MEDROL DOSEPAK4 MG PO; +VIBRAMYCIN100 MG PO
[2022-08-07 23:58] VITALS: BP 138/65
[2022-08-08 00:22] LABS: BASO % 0.5 % (0.0-1.0); EOS # 0.2 10*3/uL (0.0-0.4); HEMATOCRIT 38.5 % (42.0-52.0); LYMPH # 1.7 10*3/uL (1.3-4.4); LYMPH % 22.7 % (27.0-41.0); MEAN CELL VOLUME 93.2 fl (80.0-94.0); MEAN CORPUSCULAR HGB 32.7 pg (27.0-31.0); MEAN CORPUSCULAR HGB CONC 35.1 g/dl (33.0-37.0); MEAN PLATELET VOLUME 10.7 fl (9.6-12.3); MONO # 0.6 10*3/uL (0.1-1.0); MONO % 8.1 % (3.0-9.0); NEUT # 4.8 10*3/uL (2.3-7.9); NEUT % 65.6 % (47.0-73.0); PLATELET COUNT AUTOMATED 194 10*3/uL (130-400); RED BLOOD COUNT 4.13 10*6/uL (4.50-5.90); RED CELL DISTRI WIDTH 13.1 % (0-14.5); WHITE BLOOD COUNT 7.3 10*3/uL (4.8-10.8)
[2022-08-08 00:35] LABS: URINE AMPHETAMINES Negative (1000ng/ml); URINE BARBITURATES Negative (200ng/ml); URINE BENZODIAZEPINES Negative (200ng/ml); URINE CANNABINOIDS (THC) Negative (50ng/ml); URINE COCAINE Negative (300ng/ml); URINE METHADONE Negative (300ng/ml); URINE OPIATES Negative (300ng/ml); URINE PHENCYCLIDINE Negative (25ng/ml)
[2022-08-08 00:42] LABS: BILIRUBIN Negative (Negative); BLOOD Negative (Negative); CLARITY Clear (Clear); COLOR Yellow (Yellow); GLUCOSE Negative (Negative); KETONE Negative (Negative); LEUKO ESTERASE Negative (Negative); NITRITE Negative (Negative); UROBILINOGEN 0.2 E.U./dl (0.0-1.0)
[2022-08-08 00:46] LABS: ALKALINE PHOSPHATASE 69 U/L (46-116); BUN 10 mg/dl (9-23); CHLORIDE 107 mmol/L (98-107); POTASSIUM 4.2 mmol/L (3.4-5.1); SGPT/ALT 12 U/L (10-49)
[2022-08-08 00:49] LABS: ETHYL ALCOHOL < 3.0 mg/dl (<3)
[2022-08-08 01:17] LABS: RBC 0-2 rbc/hpf (0-2); WBC 0-2 wbc/hpf (0-5)
== END 2022-08-08 10:15 | disposition home or self-care (01) ==
LOC: ED 23:42
PROVIDERS: Internal Medicine
DX: F41.9 Anxiety disorder, unspecified (principal); N18.31 Chronic kidney disease, stage 3a; Z98.890 Other specified postprocedural states; E11.22 Type 2 diabetes mellitus with diabetic chronic kidney disease; I12.9 Hypertensive chronic kidney disease with stage 1 through stage 4 chronic kidney disease, or unspecified chronic kidney disease; F32.A Depression, unspecified; Z79.899 Other long term (current) drug therapy

== ENCOUNTER 2022-12-03 16:24 | Emergency (ER) | payer OTHER ==
[~2022-12-03] VITALS: Ht 187.9 cm; Wt 133.4 kg
[2022-12-03 16:32] VITALS: BP 130/65
[2022-12-03 17:08] LABS: BASO % 0.5 % (0.0-1.0); EOS # 0.2 10*3/uL (0.0-0.4); EOS % 2.7 % (1.0-4.0); HEMATOCRIT 37.7 % (42.0-52.0); LYMPH # 1.3 10*3/uL (1.3-4.4); LYMPH % 16.4 % (27.0-41.0); MEAN CELL VOLUME 92.6 fl (80.0-94.0); MEAN CORPUSCULAR HGB 32.9 pg (27.0-31.0); MEAN CORPUSCULAR HGB CONC 35.5 g/dl (33.0-37.0); MEAN PLATELET VOLUME 10.6 fl (9.6-12.3); MONO # 0.6 10*3/uL (0.1-1.0); MONO % 7.5 % (3.0-9.0); NEUT # 5.6 10*3/uL (2.3-7.9); NEUT % 72.6 % (47.0-73.0); PLATELET COUNT AUTOMATED 203 10*3/uL (130-400); RED BLOOD COUNT 4.07 10*6/uL (4.50-5.90); RED CELL DISTRI WIDTH 12.6 % (0-14.5); WHITE BLOOD COUNT 7.7 10*3/uL (4.8-10.8)
[2022-12-03 17:33] LABS: ALKALINE PHOSPHATASE 76 U/L (46-116); BUN 17 mg/dl (9-23); CHLORIDE 105 mmol/L (98-107); LIPASE 31 U/L (12-53); SGPT/ALT 13 U/L (10-49)
== END 2022-12-03 19:02 | disposition home or self-care (01) ==
LOC: ED 16:24
PROVIDERS: Emergency Medicine
DX: K59.00 Constipation, unspecified (principal); N20.1 Calculus of ureter; I10 Essential (primary) hypertension; E11.9 Type 2 diabetes mellitus without complications; F32.A Depression, unspecified; F41.9 Anxiety disorder, unspecified; Z98.890 Other specified postprocedural states

== ENCOUNTER → 2022-12-08 | Outpatient (CLI) | payer OTHER | END | disposition home or self-care (01) | LOC: RAD 10:11 | PROVIDERS: ATTEND Internal Medicine | DX: J18.9 Pneumonia, unspecified organism (principal); R05.9 Cough, unspecified; R06.02 Shortness of breath ==

== ENCOUNTER → 2022-12-16 | Outpatient (CLI) | payer OTHER | END | disposition home or self-care (01) | LOC: RAD 14:55 | PROVIDERS: ATTEND Internal Medicine | DX: J44.9 Chronic obstructive pulmonary disease, unspecified (principal); J18.9 Pneumonia, unspecified organism ==

== ENCOUNTER → 2022-12-28 | Outpatient (CLI) | payer OTHER | END | disposition home or self-care (01) | LOC: CARD 00:03 | PROVIDERS: ATTEND Internal Medicine | DX: R06.00 Dyspnea, unspecified (principal); I51.7 Cardiomegaly ==

== ENCOUNTER → 2023-01-05 | Outpatient (CLI) | payer OTHER | END | disposition home or self-care (01) | LOC: RAD 12:39 | PROVIDERS: ATTEND Urology | DX: N20.0 Calculus of kidney (principal); Z90.49 Acquired absence of other specified parts of digestive tract; Z98.890 Other specified postprocedural states ==

== ENCOUNTER 2023-01-21 08:00 | Emergency (ER) | payer OTHER ==
[~2023-01-21] VITALS: Ht 187.9 cm; Wt 131.5 kg
[2023-01-21 08:06] VITALS: BP 127/73
[2023-01-21 08:55] LABS: BILIRUBIN Negative (Negative); BLOOD 2+ (Negative); CLARITY Clear (Clear); COLOR Yellow (Yellow); GLUCOSE Negative (Negative); KETONE Negative (Negative); LEUKO ESTERASE Negative (Negative); NITRITE Negative (Negative); PH 5.5 (4.5-8.0); SPECIFIC GRAVITY 1.015 (1.001-1.030); UROBILINOGEN 0.2 E.U./dl (0.0-1.0)
[2023-01-21 09:15] LABS: BACTERIA 1+; RBC TNTC rbc/hpf (0-2)
[2023-01-21 09:16] LABS: EPITHELIAL CELLS 0-2
[2023-01-21 09:24] LABS: BASO # 0.1 10*3/uL (0.0-0.1); EOS # 0.2 10*3/uL (0.0-0.4); EOS % 3.8 % (1.0-4.0); LYMPH # 0.9 10*3/uL (1.3-4.4); LYMPH % 17.7 % (27.0-41.0); MEAN CELL VOLUME 93.9 fl (80.0-94.0); MEAN CORPUSCULAR HGB CONC 35.1 g/dl (33.0-37.0); MEAN PLATELET VOLUME 9.9 fl (9.6-12.3); MONO # 0.4 10*3/uL (0.1-1.0); MONO % 7.2 % (3.0-9.0); NEUT # 3.7 10*3/uL (2.3-7.9); NEUT % 69.9 % (47.0-73.0); PLATELET COUNT AUTOMATED 164 10*3/uL (130-400); RED BLOOD COUNT 3.94 10*6/uL (4.50-5.90); RED CELL DISTRI WIDTH 12.4 % (0-14.5); WHITE BLOOD COUNT 5.3 10*3/uL (4.8-10.8)
[2023-01-21 09:48] LABS: ALKALINE PHOSPHATASE 71 U/L (46-116); BUN 12 mg/dl (9-23); CHLORIDE 110 mmol/L (98-107); LIPASE 35 U/L (12-53); POTASSIUM 4.4 mmol/L (3.4-5.1); SGPT/ALT 9 U/L (5-49); TOTAL PROTEIN 6.5 gm/dL (6.0-8.0)
[2023-01-21 09:56] LABS: ACT PARTIAL THROMBO TIME 26.9 SECONDS (20.0-32.1)
== END 2023-01-21 10:30 | disposition home or self-care (01) ==
LOC: ED 08:00
PROVIDERS: Emergency Medicine
DX: K59.00 Constipation, unspecified (principal); R10.2 Pelvic and perineal pain; I10 Essential (primary) hypertension; E11.9 Type 2 diabetes mellitus without complications; F32.A Depression, unspecified; F41.9 Anxiety disorder, unspecified; Z98.890 Other specified postprocedural states; Z79.899 Other long term (current) drug therapy

== ENCOUNTER 2023-01-21 17:39 | Emergency (ER) | payer OTHER ==
[~2023-01-21] VITALS: Ht 187.9 cm; Wt 131.5 kg
[2023-01-21 17:52] VITALS: BP 135/62
== END 2023-01-21 19:16 | disposition home or self-care (01) ==
LOC: ED 17:39
DX: K59.00 Constipation, unspecified (principal); I10 Essential (primary) hypertension; E11.9 Type 2 diabetes mellitus without complications; F32.A Depression, unspecified; F41.9 Anxiety disorder, unspecified; Z98.890 Other specified postprocedural states

== ENCOUNTER → 2023-01-27 | Outpatient (CLI) | payer OTHER ==
[2023-01-27 11:24] LABS: BASO % 0.4 % (0.0-1.0); EOS # 0.2 10*3/uL (0.0-0.4); EOS % 2.3 % (1.0-4.0); HEMATOCRIT 39.7 % (42.0-52.0); LYMPH % 12.2 % (27.0-41.0); MEAN CELL VOLUME 93.9 fl (80.0-94.0); MEAN CORPUSCULAR HGB 32.4 pg (27.0-31.0); MEAN CORPUSCULAR HGB CONC 34.5 g/dl (33.0-37.0); MEAN PLATELET VOLUME 10.9 fl (9.6-12.3); MONO # 0.6 10*3/uL (0.1-1.0); NEUT # 6.6 10*3/uL (2.3-7.9); NEUT % 77.7 % (47.0-73.0); PLATELET COUNT AUTOMATED 210 10*3/uL (130-400); RED BLOOD COUNT 4.23 10*6/uL (4.50-5.90); RED CELL DISTRI WIDTH 12.3 % (0-14.5); WHITE BLOOD COUNT 8.4 10*3/uL (4.8-10.8)
[2023-01-27 11:49] LABS: ALKALINE PHOSPHATASE 79 U/L (46-116); BUN 11 mg/dl (9-23); CHLORIDE 108 mmol/L (98-107); POTASSIUM 4.5 mmol/L (3.4-5.1); SGPT/ALT 11 U/L (5-49); T3 UPTAKE 36.7 % (22.4-36.7); THYROXINE (T4) TOTAL 3.8 ug/dl (4.5-10.9)
== END | disposition home or self-care (01) ==
LOC: LAB 10:29
PROVIDERS: ATTEND Urology
DX: N20.0 Calculus of kidney (principal); E83.50 Unspecified disorder of calcium metabolism; R31.9 Hematuria, unspecified

== ENCOUNTER → 2023-01-28 | Outpatient (CLI) | payer OTHER | END | disposition home or self-care (01) | LOC: LAB 11:06 | PROVIDERS: ATTEND Urology | DX: E83.50 Unspecified disorder of calcium metabolism (principal); N20.0 Calculus of kidney; R31.9 Hematuria, unspecified ==

== ENCOUNTER → 2023-02-02 | Outpatient (CLI) | payer OTHER | END | disposition home or self-care (01) | LOC: CT 17:34 | PROVIDERS: ATTEND Urology | DX: N20.0 Calculus of kidney (principal); N28.1 Cyst of kidney, acquired; R14.0 Abdominal distension (gaseous); N13.30 Unspecified hydronephrosis; K59.00 Constipation, unspecified; Z90.49 Acquired absence of other specified parts of digestive tract ==

== ENCOUNTER 2023-03-31 21:02 | Emergency (ER) | payer OTHER ==
[~2023-03-31] VITALS: Ht 187.9 cm; Wt 131.5 kg
[2023-03-31 21:13] VITALS: BP 119/59
[2023-03-31] MEDS ORDERED: Pantoprazole Sodium 40 MG VIAL IV ONE (21:45)
[2023-03-31] MEDS ORDERED: SODIUM CHLORIDE 0.9% 1,000 ML IV ONE (21:45)
[2023-03-31] MEDS ORDERED: Ondansetron Hydrochloride 4 MG/2 ML VIAL IV ONE (21:45)
[2023-03-31 22:03] LABS: BASO % 0.5 % (0.0-1.0); EOS # 0.3 10*3/uL (0.0-0.4); EOS % 3.8 % (1.0-4.0); HEMATOCRIT 38.9 % (42.0-52.0); LYMPH # 1.4 10*3/uL (1.3-4.4); LYMPH % 18.2 % (27.0-41.0); MEAN CELL VOLUME 94.4 fl (80.0-94.0); MEAN CORPUSCULAR HGB CONC 33.9 g/dl (33.0-37.0); MONO # 0.7 10*3/uL (0.1-1.0); MONO % 8.6 % (3.0-9.0); NEUT # 5.4 10*3/uL (2.3-7.9); NEUT % 68.6 % (47.0-73.0); PLATELET COUNT AUTOMATED 179 10*3/uL (130-400); RED BLOOD COUNT 4.12 10*6/uL (4.50-5.90); RED CELL DISTRI WIDTH 12.2 % (0-14.5); WHITE BLOOD COUNT 7.9 10*3/uL (4.8-10.8)
[2023-03-31 22:11] LABS: BILIRUBIN Negative (Negative); BLOOD Negative (Negative); CLARITY Clear (Clear); COLOR Yellow (Yellow); GLUCOSE Negative (Negative); KETONE Negative (Negative); LEUKO ESTERASE Trace (Negative); NITRITE Negative (Negative); SPECIFIC GRAVITY 1.025 (1.001-1.030)
[2023-03-31 22:35] LABS: ALKALINE PHOSPHATASE 70 U/L (46-116); BUN 14 mg/dl (9-23); CHLORIDE 106 mmol/L (98-107); LIPASE 31 U/L (12-53); POTASSIUM 4.5 mmol/L (3.4-5.1); SGPT/ALT 13 U/L (5-49); TOTAL PROTEIN 7.1 gm/dL (6.0-8.0)
== END 2023-04-01 00:35 | disposition home or self-care (01) ==
LOC: ED 21:02
PROVIDERS: Emergency Medicine
DX: R11.10 Vomiting, unspecified (principal); R10.9 Unspecified abdominal pain; I10 Essential (primary) hypertension; E11.9 Type 2 diabetes mellitus without complications; F32.A Depression, unspecified; F41.9 Anxiety disorder, unspecified; Z98.890 Other specified postprocedural states

== ENCOUNTER → 2023-05-20 | Outpatient (CLI) | payer OTHER ==
[~2023-05-20] MED LIST changes: +IOHEXOL 350 MG/ML 100 ML VIAL IV ONE
== END | disposition home or self-care (01) ==
LOC: CT 04-26 10:00
PROVIDERS: ATTEND Urology
DX: N20.0 Calculus of kidney (principal); N13.30 Unspecified hydronephrosis; N28.1 Cyst of kidney, acquired; Z90.49 Acquired absence of other specified parts of digestive tract

== ENCOUNTER 2023-06-05 11:37 | Emergency (ER) | payer MEDICARE, OTHER ==
[~2023-06-05] VITALS: Ht 187.9 cm; Wt 137.9 kg
[~2023-06-05 11:37] MED LIST changes: -IOHEXOL 350 MG/ML 100 ML VIAL IV ONE
[2023-06-05 11:54] VITALS: BP 100/47
[2023-06-05] MEDS ORDERED: CYCLOBENZAPRINE5 M3 PO (11:56)
[2023-06-05] MEDS ORDERED: PENICILLIN VK500 MG PO (12:03)
[2023-06-05] MEDS ORDERED: PENICILLIN V POTASSIUM 500 MG TAB PO ONE (12:10)
[2023-06-05] MEDS ORDERED: Acetaminophen/Hydrocodone 5 MG/325 MG TABLET PO ONE (12:10)
== END 2023-06-05 12:22 | disposition home or self-care (01) ==
LOC: ED 11:37
DX: K04.7 Periapical abscess without sinus (principal); T47.6X5A Adverse effect of antidiarrheal drugs, initial encounter; F41.9 Anxiety disorder, unspecified; E11.22 Type 2 diabetes mellitus with diabetic chronic kidney disease; I12.9 Hypertensive chronic kidney disease with stage 1 through stage 4 chronic kidney disease, or unspecified chronic kidney disease; N18.31 Chronic kidney disease, stage 3a; F32.A Depression, unspecified; E11.65 Type 2 diabetes mellitus with hyperglycemia; E83.51 Hypocalcemia; E87.6 Hypokalemia; Z87.442 Personal history of urinary calculi; Z98.890 Other specified postprocedural states; Y92.89 Other specified places as the place of occurrence of the external cause

== ENCOUNTER 2023-06-06 10:43 | Emergency (ER) | payer MEDICARE, OTHER ==
[~2023-06-06] VITALS: Ht 187.9 cm; Wt 137.9 kg
[~2023-06-06 10:43] MED LIST changes: +CYCLOBENZAPRINE5 M3 PO
[2023-06-06 10:52] VITALS: BP 90/51
[2023-06-06] MEDS ORDERED: diphenhydrAMINE hydrochloride 50 MG/ML VIAL IV ONE (11:00)
[2023-06-06] MEDS ORDERED: SODIUM CHLORIDE 0.9% 1,000 ML IV ONE (11:00)
[2023-06-06] MEDS ORDERED: Metoclopramide Hydrochloride 10 MG/2 ML AMP IV ONE (11:00)
[2023-06-06 11:15] LABS: BASO % 0.5 % (0.0-1.0); EOS # 0.2 10*3/uL (0.0-0.4); EOS % 3.3 % (1.0-4.0); HEMATOCRIT 38.8 % (42.0-52.0); LYMPH # 1.2 10*3/uL (1.3-4.4); MEAN CORPUSCULAR HGB 31.9 pg (27.0-31.0); MEAN CORPUSCULAR HGB CONC 34.3 g/dl (33.0-37.0); MEAN PLATELET VOLUME 10.8 fl (9.6-12.3); MONO # 0.5 10*3/uL (0.1-1.0); MONO % 8.8 % (3.0-9.0); NEUT # 4.1 10*3/uL (2.3-7.9); NEUT % 68.1 % (47.0-73.0); PLATELET COUNT AUTOMATED 191 10*3/uL (130-400); RED BLOOD COUNT 4.17 10*6/uL (4.50-5.90); RED CELL DISTRI WIDTH 12.2 % (0-14.5)
[2023-06-06 11:37] LABS: ALKALINE PHOSPHATASE 74 U/L (46-116); BUN 16 mg/dl (9-23); CHLORIDE 107 mmol/L (98-107); LIPASE 47 U/L (12-53); POTASSIUM 3.9 mmol/L (3.4-5.1); SGPT/ALT 15 U/L (5-49); TOTAL PROTEIN 7.3 gm/dL (6.0-8.0)
[2023-06-06 11:55] LABS: BILIRUBIN Negative (Negative); BLOOD Negative (Negative); CLARITY Cloudy (Clear); COLOR Yellow (Yellow); GLUCOSE Negative (Negative); KETONE Trace (Negative); LEUKO ESTERASE 2+ (Negative); NITRITE Negative (Negative); PH 5.5 (4.5-8.0); SPECIFIC GRAVITY 1.025 (1.001-1.030)
[2023-06-06 12:10] LABS: WBC 31-40 wbc/hpf (0-5)
[2023-06-06 12:11] LABS: HYALINE CAST 16-20; MUCOUS TRACE
== END 2023-06-06 12:49 | disposition home or self-care (01) ==
LOC: ED 10:43
PROVIDERS: Emergency Medicine
DX: R11.2 Nausea with vomiting, unspecified (principal); K59.00 Constipation, unspecified; T36.0X5A Adverse effect of penicillins, initial encounter; E11.22 Type 2 diabetes mellitus with diabetic chronic kidney disease; I12.9 Hypertensive chronic kidney disease with stage 1 through stage 4 chronic kidney disease, or unspecified chronic kidney disease; N18.9 Chronic kidney disease, unspecified; F32.A Depression, unspecified; F41.9 Anxiety disorder, unspecified; Z98.890 Other specified postprocedural states; Y92.89 Other specified places as the place of occurrence of the external cause

== ENCOUNTER 2023-06-09 18:09 | Emergency (ER) | payer MEDICARE, OTHER ==
[~2023-06-09] VITALS: Wt 137.9 kg
[2023-06-09 18:26] VITALS: BP 137/63
[2023-06-09 18:59] LABS: BILIRUBIN Negative (Negative); BLOOD 3+ (Negative); CLARITY Clear (Clear); COLOR Yellow (Yellow); GLUCOSE Negative (Negative); KETONE Trace (Negative); LEUKO ESTERASE 1+ (Negative); NITRITE Negative (Negative); PH 5.5 (4.5-8.0); UROBILINOGEN 0.2 E.U./dl (0.0-1.0)
[2023-06-09 18:59] LABS: BASO % 0.4 % (0.0-1.0); EOS # 0.3 10*3/uL (0.0-0.4); EOS % 4.5 % (1.0-4.0); HEMATOCRIT 36.5 % (42.0-52.0); LYMPH # 1.4 10*3/uL (1.3-4.4); LYMPH % 21.3 % (27.0-41.0); MEAN CELL VOLUME 93.6 fl (80.0-94.0); MEAN CORPUSCULAR HGB 31.8 pg (27.0-31.0); MEAN PLATELET VOLUME 10.1 fl (9.6-12.3); MONO # 0.6 10*3/uL (0.1-1.0); MONO % 8.3 % (3.0-9.0); NEUT # 4.4 10*3/uL (2.3-7.9); NEUT % 65.4 % (47.0-73.0); PLATELET COUNT AUTOMATED 173 10*3/uL (130-400); RED CELL DISTRI WIDTH 12.4 % (0-14.5); WHITE BLOOD COUNT 6.7 10*3/uL (4.8-10.8)
[2023-06-09 19:07] LABS: BACTERIA 2+; MUCOUS 1+; RBC 51-100 rbc/hpf (0-2)
[2023-06-09 19:10] LABS: ACT PARTIAL THROMBO TIME 28.2 SECONDS (20.0-32.1)
[2023-06-09 19:18] LABS: ALKALINE PHOSPHATASE 74 U/L (46-116); BUN 13 mg/dl (9-23); CHLORIDE 108 mmol/L (98-107); LIPASE 41 U/L (12-53); POTASSIUM 3.7 mmol/L (3.4-5.1); SGPT/ALT 11 U/L (5-49); TOTAL PROTEIN 6.9 gm/dL (6.0-8.0)
[2023-06-09] MEDS ORDERED: OMNICEF300 MG PO (20:50)
[2023-06-09] MEDS ORDERED: Water, Sterile 10 ML VIAL ONE (21:09)
== END 2023-06-09 20:56 | disposition home or self-care (01) ==
LOC: ED 18:09
PROVIDERS: Nurse Practitioner Family
DX: N39.0 Urinary tract infection, site not specified (principal); N13.30 Unspecified hydronephrosis; F41.9 Anxiety disorder, unspecified; E11.22 Type 2 diabetes mellitus with diabetic chronic kidney disease; I12.9 Hypertensive chronic kidney disease with stage 1 through stage 4 chronic kidney disease, or unspecified chronic kidney disease; N18.31 Chronic kidney disease, stage 3a; F32.A Depression, unspecified; E87.6 Hypokalemia; Z98.890 Other specified postprocedural states; Z95.5 Presence of coronary angioplasty implant and graft

== ENCOUNTER 2023-07-02 13:32 | Emergency (ER) | payer MEDICARE, OTHER ==
[~2023-07-02] VITALS: Ht 187.9 cm; Wt 135.2 kg
[~2023-07-02 13:32] MED LIST changes: +OMNICEF300 MG PO
[2023-07-02 13:42] VITALS: BP 143/62
[2023-07-03] MEDS ORDERED: MELOXICAM15 MG PO (12:26)
[2023-07-03] MEDS ORDERED: CIPRO500 MG PO (12:26)
== END 2023-07-02 15:07 | disposition left against medical advice (07) ==
LOC: ED 13:32
DX: R07.89 Other chest pain (principal); Z91.041 Radiographic dye allergy status; Z88.6 Allergy status to analgesic agent; Z88.2 Allergy status to sulfonamides; Z53.21 Procedure and treatment not carried out due to patient leaving prior to being seen by health care provider

== ENCOUNTER 2023-07-03 09:38 | Emergency (ER) | payer MEDICARE, OTHER ==
[~2023-07-03] VITALS: Ht 187.9 cm; Wt 135.2 kg
[2023-07-03 10:03] VITALS: BP 110/50
[2023-07-03] MEDS ORDERED: SODIUM CHLORIDE 0.9% 1,000 ML IV ONE (10:15)
[2023-07-03 10:32] LABS: BILIRUBIN Negative (Negative); BLOOD 3+ (Negative); CLARITY Clear (Clear); COLOR Yellow (Yellow); GLUCOSE Negative (Negative); KETONE Negative (Negative); LEUKO ESTERASE 1+ (Negative); NITRITE Negative (Negative); PH 5.5 (4.5-8.0); SPECIFIC GRAVITY 1.015 (1.001-1.030); UROBILINOGEN 0.2 E.U./dl (0.0-1.0)
[2023-07-03 10:35] LABS: BASO % 0.6 % (0.0-1.0); EOS # 0.2 10*3/uL (0.0-0.4); EOS % 4.2 % (1.0-4.0); HEMATOCRIT 38.4 % (42.0-52.0); LYMPH # 0.9 10*3/uL (1.3-4.4); LYMPH % 16.5 % (27.0-41.0); MEAN CORPUSCULAR HGB 31.9 pg (27.0-31.0); MEAN CORPUSCULAR HGB CONC 33.6 g/dl (33.0-37.0); MEAN PLATELET VOLUME 10.5 fl (9.6-12.3); MONO # 0.3 10*3/uL (0.1-1.0); MONO % 5.3 % (3.0-9.0); NEUT # 3.9 10*3/uL (2.3-7.9); PLATELET COUNT AUTOMATED 189 10*3/uL (130-400); RED BLOOD COUNT 4.04 10*6/uL (4.50-5.90); RED CELL DISTRI WIDTH 12.5 % (0-14.5); WHITE BLOOD COUNT 5.3 10*3/uL (4.8-10.8)
[2023-07-03] MEDS ORDERED: IOHEXOL 300 MG/ML 100 ML VIAL IV ONE (10:35)
[2023-07-03 10:40] LABS: BACTERIA 1+; RBC TNTC rbc/hpf (0-2)
[2023-07-03 10:47] LABS: ACT PARTIAL THROMBO TIME 26.9 SECONDS (20.0-32.1)
[2023-07-03 10:56] LABS: ALKALINE PHOSPHATASE 71 U/L (46-116); BUN 17 mg/dl (9-23); CHLORIDE 105 mmol/L (98-107); POTASSIUM 4.4 mmol/L (3.4-5.1); SGPT/ALT 14 U/L (5-49); TOTAL PROTEIN 6.9 gm/dL (6.0-8.0)
[2023-07-03] MEDS ORDERED: MELOXICAM15 MG PO (12:26)
[2023-07-03] MEDS ORDERED: CIPRO500 MG PO (12:26)
== END 2023-07-03 12:30 | disposition home or self-care (01) ==
LOC: ED 09:38
PROVIDERS: Internal Medicine
DX: N39.0 Urinary tract infection, site not specified (principal); G89.18 Other acute postprocedural pain; R11.2 Nausea with vomiting, unspecified; I10 Essential (primary) hypertension; E11.9 Type 2 diabetes mellitus without complications; F32.A Depression, unspecified; F41.9 Anxiety disorder, unspecified; Z98.890 Other specified postprocedural states

== ENCOUNTER → 2023-07-21 | Outpatient (CLI) | payer MEDICARE, OTHER ==
[~2023-07-21] MED LIST changes: +CIPRO500 MG PO; +MELOXICAM15 MG PO
== END | disposition home or self-care (01) ==
LOC: US 01:33
PROVIDERS: ATTEND Urology
DX: N20.0 Calculus of kidney (principal); N28.1 Cyst of kidney, acquired; N13.30 Unspecified hydronephrosis

== ENCOUNTER 2023-08-06 11:11 | Emergency (ER) | payer MEDICARE, OTHER ==
[2023-08-06 11:20] VITALS: BP 118/58
[2023-08-06] MEDS ORDERED: Tdap Vaccine 0.5 ML SYR (Adult Vaccine) IM ONE (11:25)
[2023-08-06] MEDS ORDERED: ACETAMINOPHEN 325 MG TAB PO ONE (11:25)
[2023-08-06] MEDS ORDERED: CEPHALEXIN500 M1 PO (14:37)
[2023-08-06] MEDS ORDERED: ceFAZolin sodium 1 GM VIAL IM ONE (14:40)
== END 2023-08-06 14:47 | disposition home or self-care (01) ==
LOC: ED 11:11
DX: S02.2XXB Fracture of nasal bones, initial encounter for open fracture (principal); S00.81XA Abrasion of other part of head, initial encounter; S80.212A Abrasion, left knee, initial encounter; S80.211A Abrasion, right knee, initial encounter; I10 Essential (primary) hypertension; E11.9 Type 2 diabetes mellitus without complications; F32.A Depression, unspecified; F41.9 Anxiety disorder, unspecified; Z98.890 Other specified postprocedural states; W18.09XA Striking against other object with subsequent fall, initial encounter; Y93.89 Activity, other specified; Y92.009 Unspecified place in unspecified non-institutional (private) residence as the place of occurrence of the external cause; Y99.8 Other external cause status

== ENCOUNTER → 2023-08-20 | Outpatient (CLI) | payer MEDICARE, OTHER ==
[~2023-08-20] MED LIST changes: +CEPHALEXIN500 M1 PO
== END | disposition home or self-care (01) ==
LOC: LAB 10:11
PROVIDERS: ATTEND Urology
DX: R94.4 Abnormal results of kidney function studies (principal)

== ENCOUNTER → 2023-08-24 | Outpatient (CLI) | payer MEDICARE, OTHER ==
[~2023-08-24] MED LIST changes: +IOHEXOL 350 MG/ML 100 ML VIAL IV ONE
[2023-08-24 09:22] LABS: BASO % 0.7 % (0.0-1.0); EOS # 0.3 10*3/uL (0.0-0.4); EOS % 5.4 % (1.0-4.0); HEMATOCRIT 39.7 % (42.0-52.0); LYMPH # 1.1 10*3/uL (1.3-4.4); LYMPH % 19.6 % (27.0-41.0); MEAN CORPUSCULAR HGB 32.8 pg (27.0-31.0); MEAN CORPUSCULAR HGB CONC 34.5 g/dl (33.0-37.0); MEAN PLATELET VOLUME 10.9 fl (9.6-12.3); MONO # 0.4 10*3/uL (0.1-1.0); MONO % 7.9 % (3.0-9.0); NEUT # 3.5 10*3/uL (2.3-7.9); NEUT % 65.3 % (47.0-73.0); PLATELET COUNT AUTOMATED 183 10*3/uL (130-400); RED BLOOD COUNT 4.18 10*6/uL (4.50-5.90); RED CELL DISTRI WIDTH 12.4 % (0-14.5); WHITE BLOOD COUNT 5.4 10*3/uL (4.8-10.8)
[2023-08-24 09:23] LABS: BILIRUBIN Negative (Negative); BLOOD Negative (Negative); CLARITY Clear (Clear); COLOR Yellow (Yellow); GLUCOSE Negative (Negative); KETONE Negative (Negative); LEUKO ESTERASE 1+ (Negative); NITRITE Negative (Negative); PH 5.5 (4.5-8.0); UROBILINOGEN 0.2 E.U./dl (0.0-1.0)
[2023-08-24 09:52] LABS: ALKALINE PHOSPHATASE 80 U/L (46-116); BUN 11 mg/dl (9-23); CHLORIDE 110 mmol/L (98-107); POTASSIUM 3.9 mmol/L (3.4-5.1); SGPT/ALT 15 U/L (5-49)
[2023-08-24 09:53] LABS: BACTERIA 1+; MUCOUS 1+
== END | disposition home or self-care (01) ==
LOC: LAB 01:41 → CT 11:00 → LAB 11:00
PROVIDERS: ATTEND Urology
DX: Z12.5 Encounter for screening for malignant neoplasm of prostate (principal); N13.30 Unspecified hydronephrosis; D40.0 Neoplasm of uncertain behavior of prostate; N28.1 Cyst of kidney, acquired; N20.0 Calculus of kidney; K59.00 Constipation, unspecified; M85.452 Solitary bone cyst, left pelvis; Z90.49 Acquired absence of other specified parts of digestive tract

== ENCOUNTER 2023-12-17 09:54 | Emergency (ER) | payer MEDICARE, OTHER ==
[~2023-12-17] VITALS: Ht 187.9 cm; Wt 133.8 kg
[~2023-12-17 09:54] MED LIST changes: -IOHEXOL 350 MG/ML 100 ML VIAL IV ONE
[2023-12-17 10:37] VITALS: BP 140/93
[2023-12-17] MEDS ORDERED: AVPAK AZITHROM250 M1 PO (10:59)
== END 2023-12-17 11:07 | disposition home or self-care (01) ==
LOC: ED 09:54
DX: J32.9 Chronic sinusitis, unspecified (principal); F32.A Depression, unspecified; F41.9 Anxiety disorder, unspecified; E78.5 Hyperlipidemia, unspecified; E11.22 Type 2 diabetes mellitus with diabetic chronic kidney disease; I12.9 Hypertensive chronic kidney disease with stage 1 through stage 4 chronic kidney disease, or unspecified chronic kidney disease; N18.9 Chronic kidney disease, unspecified; I10 Essential (primary) hypertension; E11.9 Type 2 diabetes mellitus without complications; Z87.442 Personal history of urinary calculi; Z98.890 Other specified postprocedural states

== ENCOUNTER 2023-12-21 10:25 | Emergency (ER) | payer MEDICARE, OTHER ==
[~2023-12-21] VITALS: Wt 131.5 kg
[~2023-12-21 10:25] MED LIST changes: -BENZONATATE100 M1 PO
[2023-12-21 10:38] VITALS: BP 110/55
[2023-12-21 11:49] LABS: BASO % 0.9 % (0.0-1.0); EOS # 0.3 10*3/uL (0.0-0.4); EOS % 6.1 % (1.0-4.0); HEMATOCRIT 39.5 % (42.0-52.0); MEAN CORPUSCULAR HGB 32.1 pg (27.0-31.0); MEAN CORPUSCULAR HGB CONC 34.2 g/dl (33.0-37.0); MEAN PLATELET VOLUME 10.7 fl (9.6-12.3); MONO # 0.4 10*3/uL (0.1-1.0); MONO % 7.6 % (3.0-9.0); NEUT # 2.8 10*3/uL (2.3-7.9); NEUT % 61.5 % (47.0-73.0); PLATELET COUNT AUTOMATED 197 10*3/uL (130-400); RED CELL DISTRI WIDTH 11.9 % (0-14.5); WHITE BLOOD COUNT 4.6 10*3/uL (4.8-10.8)
[2023-12-21 12:16] LABS: BUN 15 mg/dl (9-23); CHLORIDE 108 mmol/L (98-107); POTASSIUM 4.1 mmol/L (3.4-5.1)
[2023-12-21] MEDS ORDERED: methylPREDNISolone sod succ 1,000 MG/16 ML VIAL IM ONE (13:05)
[2023-12-21] MEDS ORDERED: BENZONATATE100 M1 PO (13:06)
[2023-12-21] MEDS ORDERED: methylPREDNISolone sod succ 125 MG VIAL IM ONE (13:10)
== END 2023-12-21 13:26 | disposition home or self-care (01) ==
LOC: ED 10:25
PROVIDERS: Nurse Practitioner Family
DX: J06.9 Acute upper respiratory infection, unspecified (principal); Z20.822 Contact with and (suspected) exposure to COVID-19; I10 Essential (primary) hypertension; E78.5 Hyperlipidemia, unspecified; F41.9 Anxiety disorder, unspecified; F31.9 Bipolar disorder, unspecified; E11.9 Type 2 diabetes mellitus without complications; Z98.890 Other specified postprocedural states

== ENCOUNTER → 2023-12-21 | Outpatient (CLI) | payer MEDICARE, OTHER ==
[~2023-12-21] MED LIST changes: +AVPAK AZITHROM250 M1 PO; +BENZONATATE100 M1 PO
[2023-12-21 14:06] LABS: BASO # 0.1 10*3/uL (0.0-0.1); BASO % 1.2 % (0.0-1.0); EOS # 0.3 10*3/uL (0.0-0.4); HEMATOCRIT 38.7 % (42.0-52.0); MEAN CELL VOLUME 92.6 fl (80.0-94.0); MEAN CORPUSCULAR HGB 32.5 pg (27.0-31.0); MEAN CORPUSCULAR HGB CONC 35.1 g/dl (33.0-37.0); MEAN PLATELET VOLUME 10.8 fl (9.6-12.3); MONO # 0.5 10*3/uL (0.1-1.0); MONO % 8.8 % (3.0-9.0); NEUT % 58.3 % (47.0-73.0); PLATELET COUNT AUTOMATED 191 10*3/uL (130-400); RED BLOOD COUNT 4.18 10*6/uL (4.50-5.90); RED CELL DISTRI WIDTH 12.2 % (0-14.5); WHITE BLOOD COUNT 5.2 10*3/uL (4.8-10.8)
[2023-12-21 14:30] LABS: ALKALINE PHOSPHATASE 93 U/L (46-116); BUN 14 mg/dl (9-23); CHLORIDE 106 mmol/L (98-107); POTASSIUM 3.9 mmol/L (3.4-5.1); SGPT/ALT 15 U/L (5-49); TOTAL PROTEIN 7.2 gm/dL (6.0-8.0)
== END | disposition home or self-care (01) ==
LOC: CT 12-15 11:00 → LAB 03:41 → CT 14:00
PROVIDERS: ATTEND Urology
DX: Z12.5 Encounter for screening for malignant neoplasm of prostate (principal); D40.0 Neoplasm of uncertain behavior of prostate; R53.83 Other fatigue; N20.0 Calculus of kidney; J90 Pleural effusion, not elsewhere classified; N28.1 Cyst of kidney, acquired; K59.00 Constipation, unspecified

== ENCOUNTER 2023-12-26 08:20 | Emergency (ER) | payer MEDICARE, OTHER ==
[~2023-12-26] VITALS: Wt 131.5 kg
[~2023-12-26 08:20] MED LIST changes: +BENZONATATE100 M1 PO
[2023-12-26 08:28] VITALS: BP 131/90
[2023-12-26] MEDS ORDERED: LEVOFLOXACIN 500 MG TAB PO ONE (08:35)
[2023-12-26] MEDS ORDERED: LEVOFLOXACIN500 MG PO (08:37)
[2023-12-26] MEDS ORDERED: SUDAFED 12HR120 MG PO (08:37)
== END 2023-12-26 08:39 | disposition home or self-care (01) ==
LOC: ED 08:20
DX: J32.9 Chronic sinusitis, unspecified (principal); F32.A Depression, unspecified; F41.9 Anxiety disorder, unspecified; E11.22 Type 2 diabetes mellitus with diabetic chronic kidney disease; I12.9 Hypertensive chronic kidney disease with stage 1 through stage 4 chronic kidney disease, or unspecified chronic kidney disease; N18.9 Chronic kidney disease, unspecified; Z98.890 Other specified postprocedural states

== ENCOUNTER → 2024-01-19 | Outpatient (CLI) | payer MEDICARE, OTHER ==
[~2024-01-19] MED LIST changes: +LEVOFLOXACIN500 MG PO; +SUDAFED 12HR120 MG PO
[2024-01-19 11:19] LABS: BASO % 0.4 % (0.0-1.0); EOS # 0.2 10*3/uL (0.0-0.4); EOS % 3.8 % (1.0-4.0); HEMATOCRIT 39.1 % (42.0-52.0); MEAN CELL VOLUME 95.6 fl (80.0-94.0); MEAN CORPUSCULAR HGB 32.5 pg (27.0-31.0); MEAN PLATELET VOLUME 10.8 fl (9.6-12.3); MONO # 0.5 10*3/uL (0.1-1.0); MONO % 9.3 % (3.0-9.0); NEUT # 3.4 10*3/uL (2.3-7.9); NEUT % 68.2 % (47.0-73.0); PLATELET COUNT AUTOMATED 199 10*3/uL (130-400); RED BLOOD COUNT 4.09 10*6/uL (4.50-5.90); RED CELL DISTRI WIDTH 12.4 % (0-14.5)
[2024-01-19 11:29] LABS: ACT PARTIAL THROMBO TIME 27.3 SECONDS (20.0-32.1)
[2024-01-19 11:55] LABS: ALKALINE PHOSPHATASE 79 U/L (46-116); BUN 15 mg/dl (9-23); CHLORIDE 107 mmol/L (98-107); POTASSIUM 4.4 mmol/L (3.4-5.1); SGPT/ALT 13 U/L (5-49)
== END | disposition home or self-care (01) ==
LOC: LAB 10:20
PROVIDERS: ATTEND Urology
DX: Z01.818 Encounter for other preprocedural examination (principal); J44.9 Chronic obstructive pulmonary disease, unspecified

== ENCOUNTER 2024-02-05 09:09 | Emergency (ER) | payer MEDICARE, OTHER ==
[~2024-02-05] VITALS: Ht 187.9 cm; Wt 131.5 kg
[~2024-02-05 09:09] MED LIST changes: +GABAPENTIN800 MG PO; +MELATONIN5 M7 PO; +QUETIAPINE FUM300 M1 PO; +TRAZODONE150 MG PO; +TRULICITY0.75 MG/0. SC
[2024-02-05 09:16] VITALS: BP 103/53
[2024-02-05] MEDS ORDERED: Ondansetron Hydrochloride 4 MG/2 ML VIAL IV ONE (09:25)
[2024-02-05] MEDS ORDERED: SODIUM CHLORIDE 0.9% 1,000 ML IV ONE (09:25)
[2024-02-05] MEDS ORDERED: MORPHINE Sulfate 2 MG/ML SYR IV ONE (09:25)
[2024-02-05 09:51] LABS: BASO % 0.6 % (0.0-1.0); EOS # 0.2 10*3/uL (0.0-0.4); EOS % 4.4 % (1.0-4.0); HEMATOCRIT 40.4 % (42.0-52.0); MEAN CELL VOLUME 94.6 fl (80.0-94.0); MEAN CORPUSCULAR HGB 31.9 pg (27.0-31.0); MEAN CORPUSCULAR HGB CONC 33.7 g/dl (33.0-37.0); MEAN PLATELET VOLUME 10.2 fl (9.6-12.3); MONO # 0.4 10*3/uL (0.1-1.0); MONO % 7.8 % (3.0-9.0); NEUT # 3.7 10*3/uL (2.3-7.9); NEUT % 69.8 % (47.0-73.0); PLATELET COUNT AUTOMATED 217 10*3/uL (130-400); RED BLOOD COUNT 4.27 10*6/uL (4.50-5.90); RED CELL DISTRI WIDTH 12.5 % (0-14.5); WHITE BLOOD COUNT 5.3 10*3/uL (4.8-10.8)
[2024-02-05 10:09] LABS: BUN 15 mg/dl (9-23); CHLORIDE 106 mmol/L (98-107); POTASSIUM 4.6 mmol/L (3.4-5.1)
== END 2024-02-05 11:20 | disposition home or self-care (01) ==
LOC: ED 09:09
PROVIDERS: Emergency Medicine
DX: J40 Bronchitis, not specified as acute or chronic (principal); R07.89 Other chest pain; E11.22 Type 2 diabetes mellitus with diabetic chronic kidney disease; I12.9 Hypertensive chronic kidney disease with stage 1 through stage 4 chronic kidney disease, or unspecified chronic kidney disease; N18.9 Chronic kidney disease, unspecified; F32.A Depression, unspecified; F41.9 Anxiety disorder, unspecified; Z98.890 Other specified postprocedural states

== ENCOUNTER 2024-03-22 13:01 | Emergency (ER) | payer MEDICARE, OTHER ==
[~2024-03-22] VITALS: Wt 129.3 kg
[~2024-03-22 13:01] MED LIST changes: +ALPRAZOLAM0.5 M3 PO; +FANAPT2 MG PO; +MIRTAZAPINE15 M2 PO; +QUETIAPINE FUM100 M3 PO; +VRAYLAR1.5 MG PO
[2024-03-22 14:42] VITALS: BP 128/75
== END 2024-03-22 14:46 | disposition left against medical advice (07) ==
LOC: ED 13:01
DX: I95.9 Hypotension, unspecified (principal); Z53.21 Procedure and treatment not carried out due to patient leaving prior to being seen by health care provider; E11.9 Type 2 diabetes mellitus without complications; F32.A Depression, unspecified; F41.9 Anxiety disorder, unspecified; R53.1 Weakness; I10 Essential (primary) hypertension; R51.9 Headache, unspecified

== ENCOUNTER 2024-03-31 11:44 | Emergency (ER) | payer MEDICARE, OTHER ==
[~2024-03-31] VITALS: Ht 187.9 cm; Wt 131.2 kg
[2024-03-31 11:52] VITALS: BP 122/56
[2024-03-31 12:21] LABS: BASO % 0.4 % (0.0-1.0); EOS # 0.3 10*3/uL (0.0-0.4); EOS % 4.8 % (1.0-4.0); HEMATOCRIT 39.5 % (42.0-52.0); MEAN CELL VOLUME 94.5 fl (80.0-94.0); MEAN CORPUSCULAR HGB 32.1 pg (27.0-31.0); MEAN CORPUSCULAR HGB CONC 33.9 g/dl (33.0-37.0); MEAN PLATELET VOLUME 10.4 fl (9.6-12.3); MONO # 0.3 10*3/uL (0.1-1.0); MONO % 6.3 % (3.0-9.0); NEUT % 73.3 % (47.0-73.0); PLATELET COUNT AUTOMATED 196 10*3/uL (130-400); RED BLOOD COUNT 4.18 10*6/uL (4.50-5.90); RED CELL DISTRI WIDTH 12.5 % (0-14.5); WHITE BLOOD COUNT 5.4 10*3/uL (4.8-10.8)
[2024-03-31 12:30] LABS: BILIRUBIN Negative (Negative); BLOOD Negative (Negative); CLARITY Clear (Clear); COLOR Yellow (Yellow); GLUCOSE Negative (Negative); KETONE Negative (Negative); LEUKO ESTERASE Trace (Negative); NITRITE Negative (Negative); PH 6.5 (4.5-8.0); SPECIFIC GRAVITY <= 1.005 (1.001-1.030); UROBILINOGEN 0.2 E.U./dl (0.0-1.0)
[2024-03-31 12:38] LABS: URINE AMPHETAMINES Negative (1000ng/ml); URINE BARBITURATES Negative (200ng/ml); URINE BENZODIAZEPINES Negative (200ng/ml); URINE CANNABINOIDS (THC) Negative (50ng/ml); URINE COCAINE Negative (300ng/ml); URINE METHADONE Negative (300ng/ml); URINE OPIATES Negative (300ng/ml); URINE PHENCYCLIDINE Negative (25ng/ml)
[2024-03-31 12:40] LABS: RBC 0-2 rbc/hpf (0-2)
[2024-03-31 12:41] LABS: BACTERIA TRACE
[2024-03-31 12:42] LABS: BUN 14 mg/dl (9-23); CHLORIDE 107 mmol/L (98-107); CPK 97 U/L (34-171); POTASSIUM 4.2 mmol/L (3.4-5.1)
[2024-03-31 12:45] LABS: ETHYL ALCOHOL < 3.0 mg/dl (<3)
== END 2024-03-31 20:20 | disposition short-term general hospital (02) ==
LOC: ED 11:44
PROVIDERS: Emergency Medicine
DX: F43.23 Adjustment disorder with mixed anxiety and depressed mood (principal); E11.9 Type 2 diabetes mellitus without complications; I10 Essential (primary) hypertension; F20.9 Schizophrenia, unspecified; F32.A Depression, unspecified; F41.9 Anxiety disorder, unspecified; F17.200 Nicotine dependence, unspecified, uncomplicated; Z79.899 Other long term (current) drug therapy; Z98.890 Other specified postprocedural states

== ENCOUNTER 2024-06-17 18:40 | Emergency (ER) | payer MEDICARE, OTHER ==
[~2024-06-17] VITALS: Ht 187.9 cm; Wt 131.5 kg
[2024-06-17 19:52] LABS: BILIRUBIN Negative (Negative); BLOOD Negative (Negative); CLARITY Cloudy (Clear); COLOR Yellow (Yellow); GLUCOSE Negative (Negative); KETONE Negative (Negative); LEUKO ESTERASE 2+ (Negative); NITRITE Negative (Negative); UROBILINOGEN 0.2 E.U./dl (0.0-1.0)
[2024-06-17 19:57] LABS: BASO % 0.7 % (0.0-1.0); EOS # 0.3 10*3/uL (0.0-0.4); EOS % 4.6 % (1.0-4.0); HEMATOCRIT 37.6 % (42.0-52.0); MEAN CELL VOLUME 93.1 fl (80.0-94.0); MEAN CORPUSCULAR HGB 32.4 pg (27.0-31.0); MEAN CORPUSCULAR HGB CONC 34.8 g/dl (33.0-37.0); MEAN PLATELET VOLUME 10.5 fl (9.6-12.3); MONO # 0.6 10*3/uL (0.1-1.0); MONO % 9.8 % (3.0-9.0); NEUT # 3.4 10*3/uL (2.3-7.9); NEUT % 57.8 % (47.0-73.0); PLATELET COUNT AUTOMATED 178 10*3/uL (130-400); RED BLOOD COUNT 4.04 10*6/uL (4.50-5.90); RED CELL DISTRI WIDTH 12.8 % (0-14.5); WHITE BLOOD COUNT 5.8 10*3/uL (4.8-10.8)
[2024-06-17 20:26] LABS: BACTERIA TRACE
[2024-06-17 20:29] LABS: BUN 14 mg/dl (9-23); CHLORIDE 109 mmol/L (98-107); CPK 145 U/L (34-171); ETHYL ALCOHOL 4.1 mg/dl (<3); POTASSIUM 3.9 mmol/L (3.4-5.1)
[2024-06-17 20:29] LABS: URINE AMPHETAMINES Negative (1000ng/ml); URINE BARBITURATES Negative (200ng/ml); URINE BENZODIAZEPINES Negative (200ng/ml); URINE CANNABINOIDS (THC) Negative (50ng/ml); URINE COCAINE Negative (300ng/ml); URINE METHADONE Negative (300ng/ml); URINE OPIATES Negative (300ng/ml); URINE PHENCYCLIDINE Negative (25ng/ml)
[2024-06-18] MEDS ORDERED: QUEtiapine FUMARATE 300 MG TAB PO ONE (01:35)
[2024-06-18 09:35] VITALS: BP 119/49
== END 2024-06-18 10:32 | disposition home or self-care (01) ==
LOC: ED 18:40
PROVIDERS: Emergency Medicine
DX: F32.9 Major depressive disorder, single episode, unspecified (principal); E11.22 Type 2 diabetes mellitus with diabetic chronic kidney disease; N18.31 Chronic kidney disease, stage 3a; F25.9 Schizoaffective disorder, unspecified; M19.90 Unspecified osteoarthritis, unspecified site; Z79.899 Other long term (current) drug therapy; Z79.84 Long term (current) use of oral hypoglycemic drugs; Z98.890 Other specified postprocedural states

== ENCOUNTER 2024-12-11 14:03 | Emergency (ER) | payer MEDICARE, OTHER ==
[~2024-12-11] VITALS: Ht 187.9 cm; Wt 126.6 kg
[~2024-12-11 14:03] MED LIST changes: +VRAYLAR3 MG PO
[2024-12-11 14:14] VITALS: BP 123/71
[2024-12-11 15:00] LABS: BASO # 0.0 10*3/uL (0.0-0.1); BASO % 0.6 % (0.0-1.0); EOS # 0.2 10*3/uL (0.0-0.4); EOS % 3.2 % (1.0-4.0); MEAN CELL VOLUME 95.0 fl (80.0-94.0); MEAN CORPUSCULAR HGB 32.7 pg (27.0-31.0); MEAN PLATELET VOLUME 10.1 fl (9.6-12.3); MONO # 0.4 10*3/uL (0.1-1.0); MONO % 7.2 % (3.0-9.0); NEUT # 3.5 10*3/uL (2.3-7.9); NEUT % 70.6 % (47.0-73.0); NUCLEATED RED BLOOD CELL 0.0 % (0.0-0.0); NUCLEATED RED BLOOD CELL 0.0 10*3/uL (0.0-0.0); PLATELET COUNT AUTOMATED 176 10*3/uL (130-400); RED CELL DISTRI WIDTH 12.6 % (0-14.5)
[2024-12-11 15:22] LABS: BUN 10 mg/dl (9-23); SGPT/ALT 11 U/L (5-49)
== END 2024-12-11 15:53 | disposition home or self-care (01) ==
LOC: ED 14:03
PROVIDERS: Nurse Practitioner Family
DX: K62.5 Hemorrhage of anus and rectum (principal); I10 Essential (primary) hypertension; E11.9 Type 2 diabetes mellitus without complications; F32.A Depression, unspecified; F41.9 Anxiety disorder, unspecified; F20.9 Schizophrenia, unspecified; Z98.890 Other specified postprocedural states

== ENCOUNTER 2024-12-17 10:17 | Emergency (ER) | payer MEDICARE, OTHER ==
[~2024-12-17] VITALS: Ht 182.8 cm; Wt 126.6 kg
[2024-12-17 10:25] VITALS: BP 115/73
[2024-12-17] MEDS ORDERED: LIDOCAINE 1 EA PATCH T ONE (10:40)
[2024-12-17] MEDS ORDERED: Motrin,Rufen800 MG PO (11:58)
== END 2024-12-17 11:06 | disposition home or self-care (01) ==
LOC: ED 10:17
DX: M54.50 Low back pain, unspecified (principal); I10 Essential (primary) hypertension; E11.9 Type 2 diabetes mellitus without complications; F32.A Depression, unspecified; F41.9 Anxiety disorder, unspecified; F20.9 Schizophrenia, unspecified; Z98.890 Other specified postprocedural states

== ENCOUNTER 2024-12-30 13:12 | Emergency (ER) | payer MEDICARE, OTHER ==
[~2024-12-30] VITALS: Ht 187.9 cm; Wt 131.1 kg
[~2024-12-30 13:12] MED LIST changes: +Motrin,Rufen800 MG PO
[2024-12-30 13:43] VITALS: BP 125/63
[2024-12-30] MEDS ORDERED: NAPROSYN500 MG PO (14:07)
[2024-12-30] MEDS ORDERED: Acetaminophen/Oxycodone 5 MG/325 MG TABLET PO ONE (14:10)
== END 2024-12-30 14:31 | disposition home or self-care (01) ==
LOC: ED 13:12
DX: G89.29 Other chronic pain (principal); M54.50 Low back pain, unspecified; Z98.890 Other specified postprocedural states; M19.90 Unspecified osteoarthritis, unspecified site; E11.9 Type 2 diabetes mellitus without complications; I10 Essential (primary) hypertension; F41.1 Generalized anxiety disorder; F25.9 Schizoaffective disorder, unspecified; F32.A Depression, unspecified

== ENCOUNTER 2025-01-02 08:43 | Emergency (ER) | payer MEDICARE, OTHER ==
[~2025-01-02] VITALS: Ht 187.9 cm; Wt 131.1 kg
[2025-01-02 08:52] VITALS: BP 125/60
[2025-01-02] MEDS ORDERED: Dexamethasone Sodium Phospha 20 MG/5 ML VIAL IM ONE (09:00)
[2025-01-02] MEDS ORDERED: PERCOCET 5-3251 EACH PO (09:03)
[2025-01-02] MEDS ORDERED: PREDNISONE20 M1 PO (09:03)
[2025-01-02] MEDS ORDERED: METHOCARBAMOL750 M1 PO (09:03)
[2025-01-02] MEDS ORDERED: Motrin,Rufen800 MG PO (09:03)
[2025-01-03] MEDS ORDERED: Ondansetron4 MG PO (14:06)
[2025-01-03] MEDS ORDERED: LOMOTIL 2.5-0.1 EACH PO (14:06)
== END 2025-01-02 09:08 | disposition home or self-care (01) ==
LOC: ED 08:43
DX: M54.41 Lumbago with sciatica, right side (principal); I10 Essential (primary) hypertension; E11.9 Type 2 diabetes mellitus without complications; F32.A Depression, unspecified; F41.9 Anxiety disorder, unspecified; Z98.890 Other specified postprocedural states

== ENCOUNTER 2025-01-03 12:33 | Emergency (ER) | payer MEDICARE, OTHER ==
[~2025-01-03] VITALS: Ht 188 cm; Wt 126.6 kg
[~2025-01-03 12:33] MED LIST changes: +METHOCARBAMOL750 M1 PO; +PREDNISONE20 M1 PO
[2025-01-03 12:39] VITALS: BP 119/52
[2025-01-03] MEDS ORDERED: Ondansetron Hydrochloride 4 MG/2 ML VIAL IV ONE (13:00)
[2025-01-03] MEDS ORDERED: SODIUM CHLORIDE 0.9% 500 ML IV ONE (13:00)
[2025-01-03 13:25] LABS: MEAN CELL VOLUME 94.9 fl (80.0-94.0); MEAN CORPUSCULAR HGB 32.4 pg (27.0-31.0); MEAN PLATELET VOLUME 11.5 fl (9.6-12.3); NUCLEATED RED BLOOD CELL 0.0 % (0.0-0.0); NUCLEATED RED BLOOD CELL 0.0 10*3/uL (0.0-0.0); PLATELET COUNT AUTOMATED 175 10*3/uL (130-400); RED CELL DISTRI WIDTH 12.2 % (0-14.5)
[2025-01-03 13:27] LABS: MANUAL DIFF REFLEX YES
[2025-01-03 13:41] LABS: BUN 18 mg/dl (9-23); SGPT/ALT 11 U/L (5-49)
[2025-01-03 13:52] LABS: PLATELET SUFFICIENCY NORMAL (NORMAL)
[2025-01-03] MEDS ORDERED: Ondansetron4 MG PO (14:06)
[2025-01-03] MEDS ORDERED: LOMOTIL 2.5-0.1 EACH PO (14:06)
== END 2025-01-03 14:06 | disposition home or self-care (01) ==
LOC: ED 12:33
PROVIDERS: Emergency Medicine
DX: A08.4 Viral intestinal infection, unspecified (principal); E66.9 Obesity, unspecified; Z79.899 Other long term (current) drug therapy; Z79.84 Long term (current) use of oral hypoglycemic drugs; Z98.890 Other specified postprocedural states; Z68.30 Body mass index [BMI] 30.0-30.9, adult

== ENCOUNTER 2025-01-05 07:17 | Emergency (ER) | payer MEDICARE, OTHER ==
[~2025-01-05] VITALS: Ht 187.9 cm; Wt 126.6 kg
[~2025-01-05 07:17] MED LIST changes: +LOMOTIL 2.5-0.1 EACH PO; +Ondansetron4 MG PO
[2025-01-05 07:28] VITALS: BP 113/60
[2025-01-05] MEDS ORDERED: Metoclopramide Hydrochloride 10 MG/2 ML VIAL IV ONE (07:35)
[2025-01-05] MEDS ORDERED: SODIUM CHLORIDE 0.9% 1,000 ML IV ONE (07:40)
[2025-01-05] MEDS ORDERED: diphenhydrAMINE hydrochloride 50 MG/ML VIAL IV ONE (07:40)
[2025-01-05] MEDS ORDERED: REGLAN10 M1 PO (07:41)
[2025-01-05 07:52] LABS: BASO # 0.0 10*3/uL (0.0-0.1); BASO % 0.2 % (0.0-1.0); EOS # 0.0 10*3/uL (0.0-0.4); EOS % 0.2 % (1.0-4.0); MEAN CELL VOLUME 95.2 fl (80.0-94.0); MEAN CORPUSCULAR HGB 32.3 pg (27.0-31.0); MEAN PLATELET VOLUME 10.5 fl (9.6-12.3); MONO # 0.7 10*3/uL (0.1-1.0); MONO % 9.0 % (3.0-9.0); NEUT # 5.7 10*3/uL (2.3-7.9); NEUT % 69.6 % (47.0-73.0); NUCLEATED RED BLOOD CELL 0.0 % (0.0-0.0); NUCLEATED RED BLOOD CELL 0.0 10*3/uL (0.0-0.0); PLATELET COUNT AUTOMATED 170 10*3/uL (130-400); RED CELL DISTRI WIDTH 12.2 % (0-14.5)
[2025-01-05 08:17] LABS: BUN 24 mg/dl (9-23)
[2025-01-05 08:21] LABS: SGPT/ALT < 7 U/L (5-49)
== END 2025-01-05 08:45 | disposition home or self-care (01) ==
LOC: ED 07:17
PROVIDERS: Emergency Medicine
DX: A08.4 Viral intestinal infection, unspecified (principal); R19.7 Diarrhea, unspecified; I10 Essential (primary) hypertension; E11.9 Type 2 diabetes mellitus without complications; F32.A Depression, unspecified; F41.9 Anxiety disorder, unspecified; F20.9 Schizophrenia, unspecified; Z98.890 Other specified postprocedural states

== ENCOUNTER 2025-01-07 09:24 | Emergency (ER) | payer MEDICARE, OTHER ==
[~2025-01-07] VITALS: Ht 187.9 cm; Wt 131.1 kg
[~2025-01-07 09:24] MED LIST changes: +REGLAN10 M1 PO
[2025-01-07 09:31] VITALS: BP 143/69
[2025-01-07] MEDS ORDERED: CYCLOBENZAPRINE10 MG PO (11:07)
== END 2025-01-07 11:16 | disposition home or self-care (01) ==
LOC: ED 09:24
DX: M54.50 Low back pain, unspecified (principal); G89.29 Other chronic pain; E11.9 Type 2 diabetes mellitus without complications; F41.1 Generalized anxiety disorder; I10 Essential (primary) hypertension; F32.9 Major depressive disorder, single episode, unspecified; M19.90 Unspecified osteoarthritis, unspecified site; F25.9 Schizoaffective disorder, unspecified; Z53.29 Procedure and treatment not carried out because of patient's decision for other reasons; Z98.890 Other specified postprocedural states

== ENCOUNTER → 2025-01-18 | Outpatient (CLI) | payer MEDICARE, OTHER ==
[~2025-01-18] MED LIST changes: +CYCLOBENZAPRINE10 MG PO
[2025-01-18 09:42] LABS: MEAN CELL VOLUME 93.3 fl (80.0-94.0); MEAN CORPUSCULAR HGB 32.4 pg (27.0-31.0); MEAN PLATELET VOLUME 10.7 fl (9.6-12.3); NUCLEATED RED BLOOD CELL 0.0 % (0.0-0.0); NUCLEATED RED BLOOD CELL 0.0 10*3/uL (0.0-0.0); PLATELET COUNT AUTOMATED 198.0 10*3/uL (130-400); RED CELL DISTRI WIDTH 12.3 % (0-14.5)
[2025-01-18 10:18] LABS: BUN 16 mg/dl (9-23); CPK 105 U/L (34-171); FREE T4 1.13 ng/dl (0.89-1.76); LDL CHOLESTEROL 83 mg/dL (9-159); SGPT/ALT 10 U/L (5-49)
[2025-01-18 10:19] LABS: VITAMIN D, 25-HYDROXY 61.4 ng/mL (30-100)
== END | disposition home or self-care (01) ==
LOC: LAB 04:57
PROVIDERS: ATTEND Family Medicine
DX: Z12.5 Encounter for screening for malignant neoplasm of prostate (principal); I10 Essential (primary) hypertension; E11.9 Type 2 diabetes mellitus without complications; E78.00 Pure hypercholesterolemia, unspecified; E55.9 Vitamin D deficiency, unspecified; R53.83 Other fatigue

== ENCOUNTER 2025-02-01 14:08 | Emergency (ER) | payer MEDICARE, OTHER ==
[~2025-02-01] VITALS: Ht 187.9 cm; Wt 126.6 kg
[2025-02-01 15:23] VITALS: BP 117/64
[2025-02-01] MEDS ORDERED: Acetaminophen/Oxycodone 5 MG/325 MG TABLET PO ONE (16:45)
== END 2025-02-01 17:05 | disposition home or self-care (01) ==
LOC: ED 14:08
DX: M54.50 Low back pain, unspecified (principal); G89.29 Other chronic pain; I10 Essential (primary) hypertension; E11.9 Type 2 diabetes mellitus without complications; F41.9 Anxiety disorder, unspecified; F32.A Depression, unspecified; F20.9 Schizophrenia, unspecified; Z98.890 Other specified postprocedural states; Z93.0 Tracheostomy status